=== PATIENT | female | born 1945 | race American Indian/Alaskan Native ===

== ENCOUNTER → 2017-02-18 | Outpatient (CLI) | payer MEDICARE ==
[2017-02-18 13:22] LABS: ALBUMIN 3.8 GM/DL (3.2-5.2); ALBUMIN/GLOBULIN RATIO 1.12 (1.00-1.93); ALKALINE PHOSPHATASE 34 U/L (45-117); ALT/SGPT 26 U/L (12-78); ANION GAP 5 MEQ/L (8-16); AST/SGOT 20 U/L (15-37); BILIRUBIN,TOTAL 0.6 MG/DL (0.2-1.0); BLOOD UREA NITROGEN 20 MG/DL (7-18); CALCIUM LEVEL 9.1 MG/DL (8.8-10.2); CARBON DIOXIDE LEVEL 30 MEQ/L (21-32); CHLORIDE LEVEL 104 MEQ/L (98-107); CHOLESTEROL LEVEL 230 MG/DL (<200); CREATININE FOR GFR 0.76 MG/DL (0.55-1.02); GLOMERULAR FILTRATION RATE > 60.0 (>39); GLUCOSE, FASTING 105 MG/DL (83-110); POTASSIUM SERUM 4.5 MEQ/L (3.5-5.1); SODIUM LEVEL 139 MEQ/L (136-145); TOTAL PROTEIN 7.2 GM/DL (6.4-8.2); TRIGLYCERIDES LEVEL 348 MG/DL (<150)
== END ==
LOC: M WUC 08:42
PROVIDERS: ATTEND Emergency Medicine
DX: I10 Essential (primary) hypertension (principal); E78.5 Hyperlipidemia, unspecified; E55.9 Vitamin D deficiency, unspecified; R73.01 Impaired fasting glucose

== ENCOUNTER → 2017-08-05 | Outpatient (CLI) | payer MEDICARE ==
[2017-08-05 09:57] LABS: ALBUMIN 3.9 GM/DL (3.2-5.2); ALBUMIN/GLOBULIN RATIO 1.11 (1.00-1.93); ALKALINE PHOSPHATASE 34 U/L (45-117); ALT/SGPT 25 U/L (12-78); ANION GAP 6 MEQ/L (8-16); AST/SGOT 17 U/L (7-37); BILIRUBIN,TOTAL 0.6 MG/DL (0.2-1.0); BLOOD UREA NITROGEN 17 MG/DL (7-18); CALCIUM LEVEL 9.2 MG/DL (8.8-10.2); CARBON DIOXIDE LEVEL 30 MEQ/L (21-32); CHLORIDE LEVEL 103 MEQ/L (98-107); CHOLESTEROL LEVEL 250 MG/DL (<200); CREATININE FOR GFR 0.74 MG/DL (0.55-1.02); GLOMERULAR FILTRATION RATE > 60.0 (>39); GLUCOSE, FASTING 105 MG/DL (83-110); POTASSIUM SERUM 4.3 MEQ/L (3.5-5.1); SODIUM LEVEL 139 MEQ/L (136-145); TOTAL PROTEIN 7.4 GM/DL (6.4-8.2); TRIGLYCERIDES LEVEL 289 MG/DL (<150)
== END ==
LOC: M WUC 08:04
PROVIDERS: ATTEND Emergency Medicine
DX: E78.5 Hyperlipidemia, unspecified (principal); I10 Essential (primary) hypertension; E55.9 Vitamin D deficiency, unspecified; R73.01 Impaired fasting glucose

== ENCOUNTER → 2018-02-11 | Outpatient (CLI) | payer MEDICARE ==
[2018-02-11 13:00] LABS: TOTAL 25(OH) VITAMIN D 40.7 NG/ML (30.0-100.0)
[2018-02-11 13:31] LABS: ALBUMIN 4.3 GM/DL (3.2-5.2); ALBUMIN/GLOBULIN RATIO 1.23 (1.00-1.93); ALKALINE PHOSPHATASE 41 U/L (45-117); ALT/SGPT 31 U/L (12-78); ANION GAP 9 MEQ/L (8-16); AST/SGOT 21 U/L (7-37); BILIRUBIN,TOTAL 0.7 MG/DL (0.2-1.0); BLOOD UREA NITROGEN 21 MG/DL (7-18); CALCIUM LEVEL 9.1 MG/DL (8.8-10.2); CARBON DIOXIDE LEVEL 24 MEQ/L (21-32); CHLORIDE LEVEL 107 MEQ/L (98-107); CHOLESTEROL LEVEL 215 MG/DL (<200); CHOLESTEROL RISK RATIO 3.706 (<5); CREATININE FOR GFR 0.83 MG/DL (0.55-1.30); GLOMERULAR FILTRATION RATE > 60.0 (>39); GLUCOSE, FASTING 126 MG/DL (70-100); HDL CHOLESTEROL 58 MG/DL (>40); LDL CHOLESTEROL 119.4 MG/DL (<100); NON-HDL-C 157 MG/DL; POTASSIUM SERUM 4.6 MEQ/L (3.5-5.1); SODIUM LEVEL 140 MEQ/L (136-145); TOTAL PROTEIN 7.8 GM/DL (6.4-8.2); TRIGLYCERIDES LEVEL 188 MG/DL (<150)
[2018-02-11 13:40] LABS: ESTIMATED AVERAGE GLUCOSE 131 MG/DL (60-110); HEMOGLOBIN A1c 6.2 %
== END ==
LOC: M WUC 08:55
DX: I10 Essential (primary) hypertension (principal); E78.5 Hyperlipidemia, unspecified; E55.9 Vitamin D deficiency, unspecified; R73.01 Impaired fasting glucose
CPT/HCPCS: 80053

== ENCOUNTER → 2018-09-03 | Outpatient (CLI) | payer MEDICARE ==
[2018-09-03 10:07] LABS: ALBUMIN 3.8 GM/DL (3.2-5.2); BILIRUBIN,TOTAL 0.6 MG/DL (0.2-1.0); CALCIUM LEVEL 9.1 MG/DL (8.8-10.2); CHOLESTEROL RISK RATIO 4.096 (<5); CREATININE FOR GFR 0.98 MG/DL (0.55-1.30); GLOMERULAR FILTRATION RATE 59.4 (>39); POTASSIUM SERUM 4.3 MEQ/L (3.5-5.1)
[2018-09-03 10:31] LABS: HEMOGLOBIN A1c 6.7 %
[2018-09-03 11:36] LABS: TOTAL 25(OH) VITAMIN D 52.1 NG/ML (30.0-100.0)
== END ==
LOC: M WUC 08:15
PROVIDERS: ATTEND Physician Assistant
DX: I10 Essential (primary) hypertension (principal); E78.5 Hyperlipidemia, unspecified; E55.9 Vitamin D deficiency, unspecified; R73.01 Impaired fasting glucose

== ENCOUNTER → 2018-09-30 | Outpatient (REF) | payer MEDICARE ==
[2018-09-30 13:55] LABS: CHOLESTEROL LEVEL 215 MG/DL (<200); CHOLESTEROL RISK RATIO 3.644 (<5); FREE T4 1.07 NG/DL (0.76-1.46); HDL CHOLESTEROL 59 MG/DL (>40); LDL CHOLESTEROL 116 MG/DL (<100); NON-HDL-C 156 MG/DL; RHEUMATOID FACTOR QUANT < 10.0 IU/ML (<15.0); THYROID STIMULATING HORMONE 0.497 uIU/ML (0.358-3.740); TRIGLYCERIDES LEVEL 198 MG/DL (<150)
[2018-09-30 15:28] LABS: HEMOGLOBIN A1c 6.5 %
[2018-10-01 14:58] LABS: ANTINUCLEAR ANTIBODIES DIRECT Negative (Negative)
== END ==
LOC: M LABNEURO 09:48
PROVIDERS: ATTEND Psychiatry & Neurology Neurology
DX: E07.9 Disorder of thyroid, unspecified (principal); E11.9 Type 2 diabetes mellitus without complications; I63.9 Cerebral infarction, unspecified

== ENCOUNTER → 2018-11-27 | Outpatient (CLI) | payer MEDICARE ==
[~2018-11-27] MED LIST: ISOVUE-370 76% 125ML VIAL (Q9967 PER ML) As Ordered ONE
--- NOTE | 2018-11-27 16:36 | REP ---
CT ANGIO HEAD: HISTORY: Carotid stenosis. CONTRAST: Isovue-370 370, 100 mL There is no aneurysm or arteriovenous malformation. Calcified atherosclerotic plaques are present in the cavernous internal carotid arteries and distal left vertebral artery at the level of the foramen magnum. There is no significant stenosis. Major intracranial vessels are patent. The vertebral arteries are equal in size. The deep venous system and dural sinuses are patent. IMPRESSION: 1. There is no aneurysm or arteriovenous malformation. 2. Atherosclerotic disease as described above. Electronically Signed by Taqueria Moss MD 11/27/2018 05:17 P
--- NOTE | 2018-11-27 16:45 | REP ---
CT ANGIO NECK: HISTORY: Carotid stenosis. CONTRAST: Isovue-370, 100 mL Calcified atherosclerotic plaques are present at the origins of the right external and internal carotid artery. There is moderate stenosis of 50% of the right internal carotid artery at its origin. There is moderate stenosis of 60% of the external carotid artery at its origin. Calcified atherosclerotic plaques are present at the origins of the left external and internal carotid arteries. There is mild stenosis of 30% of the left internal carotid artery at its origin. There is moderate stenosis of 60% of the left external carotid artery at its origin. The vertebral arteries are equal in size and patent. Calcified atherosclerotic plaques are present at the origins of the great vessels. There is no significant stenosis. IMPRESSION: 1. Moderate stenosis of 50% of the right internal carotid artery at its origin. 2. Mild stenosis of 30% of the left internal carotid artery at its origin. Electronically Signed by Taqueria Moss MD 11/27/2018 05:17 P
== END ==
LOC: M RAD 14:59
PROVIDERS: ATTEND Surgery Vascular Surgery
DX: I65.23 Occlusion and stenosis of bilateral carotid arteries (principal)
CPT/HCPCS: 70496; 70498; Q9967

== ENCOUNTER 2019-03-01 07:21 | Observation (INO) | payer MEDICARE ==
[~2019-03-01] VITALS: Ht 162.6 cm; Wt 67.6 kg
[2019-03-01 08:03] LABS: BASO % 0.4 % (0.0-1.0); EOS # 0.1 10^3/uL (0.0-0.50); EOS % 1.2 % (0.0-3.0); HEMATOCRIT 32.2 % (36.0-47.0); HEMOGLOBIN 10.9 g/dl (12.0-15.5); LYMPH # 1.8 10^3/uL (1.5-4.5); LYMPH % 26.5 % (24.0-44.0); MEAN CORPUSCULAR HEMOGLOBIN 30.9 pg (27.0-33.0); MEAN CORPUSCULAR HGB CONC 33.9 g/dl (32.0-36.5); MEAN CORPUSCULAR VOLUME 91.2 fl (80.0-96.0); MONO # 0.7 10^3/uL (0.0-0.8); MONO % 10.1 % (0.0-5.0); NEUTROPHILS # 4.2 10^3/uL (1.8-7.7); NEUTROPHILS % 61.7 % (36.0-66.0); PLATELET COUNT, AUTOMATED 262 10^3/uL (150-450); RED BLOOD COUNT 3.53 10^6/uL (4.00-5.40); WHITE BLOOD COUNT 6.8 10^3/uL (4.0-10.0)
[2019-03-01] MEDS ORDERED: PANTOPRAZOLE 40MG INJ (PROTONIX) (C9113) IV ONE (08:30)
[2019-03-01 08:31] LABS: ALBUMIN 3.8 GM/DL (3.2-5.2); ALT/SGPT 30 U/L (12-78); BILIRUBIN,DIRECT 0.2 MG/DL (0.0-0.2); BILIRUBIN,TOTAL 0.5 MG/DL (0.2-1.0); LIPASE 229 U/L (73-393)
[2019-03-01 08:56] LABS: CK-MB VALUE MASS < 1.0 NG/ML (<3.6); CPK CREATINE PHOSPHOKINASE 59 U/L (26-192); MB/CK RELATIVE INDEX 1.69 (< OR =4); TROPONIN I < 0.02 NG/ML (< 0.10)
[2019-03-01] MEDS: DIGOXIN 0.125 MG TAB PO SCH (09:00)
[2019-03-01] MEDS: PANTOPRAZOLE SODIUM 40 MG in D5W 50 ML IV SCH ×4 (09:08→23:04)
[2019-03-01 09:38] LABS: INR 1.59; PARTIAL THROMBOPLASTIN TIME 30.6 SECONDS (25.4-37.6); PROTHROMBIN TIME 19.2 SECONDS (12.1-14.4)
--- NOTE | 2019-03-01 09:38 | REP ---
CHEST, SINGLE VIEW: There is no evidence of acute infiltrate. No pleural effusion is seen. The heart is normal in size. The mediastinal silhouette is unremarkable. The visualized osseous structures are intact. Multiple sternal wires and mediastinal clips are present. There is calcification of the thoracic aorta. IMPRESSION: No acute pulmonary disease. Electronically Signed by Ken Harmon MD 03/01/2019 04:26 P
[2019-03-01] MEDS ORDERED: AZO1CAP2 PO (09:53)
[2019-03-01] MEDS ORDERED: D32000CA PO (09:53)
[2019-03-01] MEDS ORDERED: MINO2.5T PO (09:53)
[2019-03-01] MEDS ORDERED: DIGO0.12 PO (09:53)
[2019-03-01] MEDS ORDERED: FLUTISP NARES (09:53)
[2019-03-01] MEDS ORDERED: ATEN25TA PO (09:53)
[2019-03-01] MEDS ORDERED: PLAV1TAB2 PO (09:53)
[2019-03-01] MEDS ORDERED: NITR0.4S14 SL (09:53)
[2019-03-01] MEDS ORDERED: PRAV20TA2 PO (09:53)
[2019-03-01] MEDS ORDERED: LISI40TA PO (09:53)
[2019-03-01] MEDS ORDERED: CHLO125TA PO (09:53)
[2019-03-01] MEDS ORDERED: XARE20TA PO (09:53)
[2019-03-01] MEDS ORDERED: NITROGLYCERIN 0.3 MG SUBL TAB SL PRN (10:45)
[2019-03-01] MEDS ORDERED: ACETAMINOPHEN TAB 650MG DOSE (2X325MG) PO PRN (10:45)
[2019-03-01] MEDS ORDERED: FLUTICASONE PROP 0.05% NASAL SPRAY 16 GM (FLONASE) NARES PRN (10:45)
[2019-03-01 14:42] VITALS: BP 131/64
[2019-03-01 16:00] VITALS: BP 137/61
--- NOTE | 2019-03-01 16:39 | HPEPDOC ---
General Date of Admission Mar 01, 2019 at 10:32 Date of Service: Mar 01, 2019 Chief Complaint The patient is a 73-year-old female admitted with a reason for visit of Ugi Bleed. History of Present Illness 73-year-old female with past medical history of abdominal aortic aneurysm status post repair in 2005, mitral valve replacement, hypertension, dyslipidemia, TIAs, and recent diagnosis of atrial fibrillation status post cardiac ablation 2 weeks ago presents to the ER with a chief complaint of several episodes of dark- colored stools. Of note, the patient states that she had been taking Coumadin for anticoagulation for about 3 months for atrial fibrillation, and recently switched over to Xarelto 3 days ago due to the convenience of it. She did not have any issues with bleeding before. She does endorse some supraumbilical/epigastric abdominal pain. The patient denies any complaints of leg tenderness, dizziness, chest pain, palpitations, shortness of breath, or any nausea/vomiting/diarrhea. In the ER, the patient was noted to be hemodynamically stable. She will be admitted to the hospitalist service, and a consult has been placed to GI for further evaluation and management of possible upper GI bleed. Home Medications Scheduled Atenolol (Atenolol) 25 Mg Tablet, 12.5 MG PO DAILY, (Reported) Chlorthalidone (Chlorthalidone) 25 Mg Tablet, 12.5 MG PO DAILY, (Reported) Cholecalciferol (Vitamin D3) (Vitamin D3) 2,000 Unit Capsule, 4,000 UNIT PO DAILY, (Reported) Clopidogrel Bisulfate (Plavix) 75 Mg Tablet, 75 MG PO DAILY, (Reported) Digoxin (Digoxin) 125 Mcg Tablet, 125 MCG PO DAILY, (Reported) Lisinopril (Lisinopril) 40 Mg Tablet, 40 MG PO QHS, (Reported) Minoxidil (Minoxidil) 2.5 Mg Tablet, 2.5 MG PO DAILY, (Reported) Pravastatin Sodium (Pravastatin Sodium) 20 Mg Tablet, 10 MG PO DAILY, (Reported) Pumpkin Seed Extract/Soy Germ (Azo Bladder Control Capsule) 300 Mg Capsule, 600 MG PO QHS, (Reported) Rivaroxaban (Xarelto) 20 Mg Tablet, 20 MG PO QPM, (Reported) STARTED 02/26/19. PT WAS ON WARFARIN 3MG 5XW, 10MG 2XW PRIOR Scheduled PRN Fluticasone Propionate (Fluticasone Propionate) 16 Gm [place].susp, 2 SPRAY NARES DAILY PRN for NASAL CONGESTION, (Reported) Nitroglycerin (Nitroglycerin) 0.4 Mg Tab.subl, 0.4 MG SL NITRO PRN for CHEST PAIN, (Reported) Allergies Coded Allergies: Sulfa (Sulfonamide Antibiotics) (Verified Allergy, Severe, RSH, TROUBLE BREATHING, 03/01/19) estrogens, conjugated (Verified Allergy, Intermediate, RASH, 03/01/19) oxybutynin (Verified Allergy, Intermediate, RASH, 03/01/19) solifenacin (Verified Allergy, Intermediate, RASH, 03/01/19) Penicillins (Verified Adverse Reaction, Mild, HEADACHE, NAUSEA, 03/01/19) Past Medical History Medical History As noted in HPI. Surgical History Mitral valve replacement, AAA repair in 2005, cardiac ablation appendectomy, hysterectomy, bilateral salpingo-oophorectomy Social History * Smoker: former Smoker (smoked 2 packs per day for 40+ years. Quit in 2005) Alcohol: Denies Drugs: denies Review of Systems Other systems 10 point review of systems negative unless otherwise specified in HPI. Physical Examination General Exam: Positive: Alert, Cooperative, No Acute Distress ENT Exam: Positive: Atraumatic, Mucous membr. moist/pink Neck Exam: Negative: JVD Chest Exam: Positive: Clear to auscultation, Normal air movement Heart Exam: Positive: Rate Normal, Normal S1, Normal S2 Abdomen Exam: Positive: Soft, Tenderness (mild tenderness to deep palpation in the supraumbilical/epigastric region. No rebound tenderness, guarding, or rigidity noted.) Extremity Exam: Negative: Tenderness, Swelling Psych Exam: Positive: Oriented x 3 Vital Signs Vital Signs Date Time Temp Pulse Resp B/P (MAP) Pulse Ox O2 Delivery O2 Flow Rate FiO2 03/01/19 14:42 98.2 77 18 131/64 (86) 97 03/01/19 14:15 Room Air Laboratory Data Labs 24H Laboratory Tests 2 03/01/19 07:54: Immature Granulocyte % (Auto) 0.1, White Blood Count 6.8, Red Blood Count 3.53L, Hemoglobin 10.9L, Hematocrit 32.2L, Mean Corpuscular Volume 91.2, Mean Corpuscular Hemoglobin 30.9, Mean Corpuscular Hemoglobin Concent 33.9, Red Cell Distribution Width 13.4, Platelet Count 262, Neutrophils (%) (Auto) 61.7, Lymphocytes (%) (Auto) 26.5, Monocytes (%) (Auto) 10.1H, Eosinophils (%) (Auto) 1.2, Basophils (%) (Auto) 0.4, Neutrophils # (Auto) 4.2, Lymphocytes # (Auto) 1.8, Monocytes # (Auto) 0.7, Eosinophils # (Auto) 0.1, Basophils # (Auto) 0.0, Nucleated Red Blood Cells % (auto) 0.0, Aspartate Amino Transf (AST/SGOT) 24, Alanine Aminotransferase (ALT/SGPT) 30, Alkaline Phosphatase 41L, Total Bilirubin 0.5, Direct Bilirubin 0.2, Total Creatine Kinase 59, Creatine Kinase MB < 1.0, Creatine Kinase MB Relative Index 1.69, Troponin I < 0.02, Total Protein 7.0, Albumin 3.8, Albumin/Globulin Ratio 1.19, Lipase 229 03/01/19 08:26: Prothrombin Time 19.2H, Prothromb Time International Ratio 1.59, Activated Partial Thromboplast Time 30.6 03/01/19 08:36: POC Glucose (Misc Panel) 153H, POC Sodium (Misc Panel) 138, POC Potassium (Misc Panel) 3.9, POC Chloride (Misc Panel) 97L, POC Total CO2 (Misc Panel) 30.0H, POC Blood Urea Nitrogen (Misc Panel 42H, POC Ionized Calcium (Misc Panel) 5.0, POC Creatinine (Misc Panel) 0.9, POC Hematocrit (Misc Panel) 31.0L CBC/BMP Laboratory Tests 03/01/19 07:54 Red Blood Count 3.53 L, Mean Corpuscular Volume 91.2, Mean Corpuscular Hemoglobin 30.9, Mean Corpuscular Hemoglobin Concent 33.9, Red Cell Distribution Width 13.4, Neutrophils (%) (Auto) 61.7, Lymphocytes (%) (Auto) 26.5, Monocytes (%) (Auto) 10.1 H, Eosinophils (%) (Auto) 1.2, Basophils (%) (Auto) 0.4, Neutrophils # (Auto) 4.2, Lymphocytes # (Auto) 1.8, Monocytes # (Auto) 0.7, Eosinophils # (Auto) 0.1, Basophils # (Auto) 0.0 Plan / VTE VTE Prophylaxis Ordered?: Yes Plan Plan Melena 2/2 UGIB on Xarelto Hemodynamically stable in the ER Hgb stable We will serially monitor H&Hs We will keep the patient NPO until seen by GI and EGD planned Protonix gtt ordered Hold Xarelto/Plavix We will cont to monitor Hx of Atrial Fibrillation s/p Cardiac Ablation Rate controlled, Atenolol held in case the patient has more bleeding episodes Xarelto held 2/2 UGIB Risks, benefits, and alternative options discussed at length with the patient and her family at the bedside regarding holding anticoagulation and antiplatelet therapy. They have verbalized understanding of the same and agreed with management given her presentation of upper GI bleed. All questions were answered to their satisfaction. Hx of AAA s/p Repair in 2005 F/U as outpatient HTN Anti-HTN meds held 2/2 Above Hx of TIA Cont Statin, Plavix held 2/2 above Hx of Mitral Valve Replacement F/U as outpatient DVT Prophylaxis PERLAs/JULIO Ramon MD Mar 01, 2019 16:38
--- NOTE | 2019-03-01 18:59 | ECGEPIP ---
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
[2019-03-01 20:00] VITALS: BP 130/52
[2019-03-01 20:13] LABS: HEMATOCRIT 29.9 % (36.0-47.0); HEMOGLOBIN 9.6 g/dl (12.0-15.5)
[2019-03-01 23:59] VITALS: BP 89/50
[2019-03-02 03:17] LABS: HEMATOCRIT 27.5 % (36.0-47.0); HEMOGLOBIN 9.3 g/dl (12.0-15.5); MEAN CORPUSCULAR HEMOGLOBIN 30.9 pg (27.0-33.0); MEAN CORPUSCULAR HGB CONC 33.8 g/dl (32.0-36.5); MEAN CORPUSCULAR VOLUME 91.4 fl (80.0-96.0); PLATELET COUNT, AUTOMATED 220 10^3/uL (150-450); RED BLOOD COUNT 3.01 10^6/uL (4.00-5.40)
[2019-03-02 03:43] LABS: BLOOD UREA NITROGEN 42 MG/DL (7-18); CALCIUM LEVEL 8.8 MG/DL (8.8-10.2); CARBON DIOXIDE LEVEL 27 MEQ/L (21-32); CHLORIDE LEVEL 107 MEQ/L (98-107); CREATININE FOR GFR 0.95 MG/DL (0.55-1.30); GLOMERULAR FILTRATION RATE > 60.0 (>39); GLUCOSE, FASTING 113 MG/DL (70-100); MAGNESIUM LEVEL 2.3 MG/DL (1.8-2.4); POTASSIUM SERUM 3.8 MEQ/L (3.5-5.1); SODIUM LEVEL 141 MEQ/L (136-145)
[2019-03-02 04:00] VITALS: BP 93/48
[2019-03-02] MEDS: PANTOPRAZOLE SODIUM 40 MG in D5W 50 ML IV SCH ×4 (04:08→20:15)
[2019-03-02 07:52] VITALS: BP 121/56
[2019-03-02 09:08] LABS: HEMATOCRIT 28.4 % (36.0-47.0); HEMOGLOBIN 9.5 g/dl (12.0-15.5)
[2019-03-02] MEDS: DIGOXIN 0.125 MG TAB PO SCH (09:17)
[2019-03-02] MEDS: PRAVASTATIN 20 MG TAB PO SCH (09:17)
[2019-03-02] MEDS: VITAMIN D 1,000 INTERNATIONAL UNITS TABLET PO SCH (09:18)
[2019-03-02] MEDS ORDERED: PILL CUTTER 1 EACH XX PRN (09:30)
--- NOTE | 2019-03-02 10:19 | IPNPDOC ---
Subjective Date Seen The patient was seen on 03/02/19. Subjective Chief Complaint/HPI Patient seen and examined at the bedside. Denies any more episodes of dark colored stools. Objective Physical Examination General Exam: Positive: Alert, Cooperative, No Acute Distress ENT Exam: Positive: Atraumatic, Mucous membr. moist/pink Neck Exam: Negative: JVD Chest Exam: Positive: Clear to auscultation, Normal air movement Heart Exam: Positive: Rate Normal, Normal S1, Normal S2 Abdomen Exam: Positive: Soft, Tenderness (mild tenderness to deep palpation in the supraumbilical/epigastric region. No rebound tenderness, guarding, or rigidity noted.) Extremity Exam: Negative: Tenderness, Swelling Psych Exam: Positive: Oriented x 3 Assessment /Plan Plan/VTE VTE Prophylaxis Ordered?: Yes Plan Melena 2/2 UGIB on Xarelto Patient with no more episodes of melena since being admitted Hgb has downtrended to 9.5 this aM We will serially monitor H&Hs We will keep the patient NPO until seen by GI and EGD planned Cont Protonix gtt Hold Xarelto/Plavix We will cont to monitor Hx of Atrial Fibrillation s/p Cardiac Ablation Rate controlled, Atenolol held in case the patient has more bleeding episodes Xarelto held 2/2 UGIB Risks, benefits, and alternative options discussed at length with the patient and her family at the bedside regarding holding anticoagulation and antiplatelet therapy. They have verbalized understanding of the same and agreed with management given her presentation of upper GI bleed. All questions were answered to their satisfaction. Hx of AAA s/p Repair in 2005 F/U as outpatient HTN Anti-HTN meds held 2/2 Above Hx of TIA Cont Statin, Plavix held 2/2 above Hx of Mitral Valve Replacement F/U as outpatient DVT Prophylaxis SCDs/TEDs Dispo--pending continued clinical improvement, GI consultation. VS, I&O, 24H, Fishbone Vital Signs/I&O Vital Signs Date Time Temp Pulse Resp B/P (MAP) Pulse Ox O2 Delivery O2 Flow Rate FiO2 03/02/19 09:17 81 03/02/19 07:52 97.0 18 121/56 (77) 98 03/01/19 14:15 Room Air I&O- Last 24 Hours up to 6 AM 03/02/19 06:00 Intake Total 210 ml Output Total 300 ml Balance -90 ml Laboratory Data 24H LABS Laboratory Tests 2 03/02/19 03:10: Nucleated Red Blood Cells % (auto) 0.0, Anion Gap 7L, Glomerular Filtration Rate > 60.0, Blood Urea Nitrogen 42H, Creatinine 0.95, Sodium Level 141, Potassium Level 3.8, Chloride Level 107, Carbon Dioxide Level 27, Calcium Level 8.8, Magnesium Level 2.3 CBC/BMP Laboratory Tests 03/01/19 20:06 03/02/19 03:10 Red Blood Count 3.01 L, Mean Corpuscular Volume 91.4, Mean Corpuscular He moglobin 30.9, Mean Corpuscular Hemoglobin Concent 33.8, Red Cell Distribution Width 13.6, Calcium Level 8.8 03/02/19 08:53 Microbiology Microbiology 03/02/19 Stool Occult Blood (ESSENCE), Received Pending JULIO NYE MD Mar 02, 2019 10:19
[2019-03-02] MEDS ORDERED: PROPOFOL 200 MG/20 ML VIAL As Ordered ONE (10:21)
[2019-03-02] MEDS ORDERED: LIDOCAINE 2% INJ 100 MG/5 ML SDV (FOR ANES.) As Ordered ONE (10:21)
[2019-03-02] MEDS ORDERED: fentaNYL 100 MCG/2 ML INJECTION (J3010) As Ordered ONE (10:22)
[2019-03-02] MEDS ORDERED: MIDAZOLAM INJ 2 MG/2 ML VIAL (J2250) As Ordered ONE (10:42)
--- NOTE | 2019-03-02 12:33 | CR.PDOC ---
General Date of Consultation: Mar 02, 2019 Referring Provider: JULIO NYE MD Attending Physician: LEDA GARCIA MD Consultation Reason for consult: Melena and drop in Hemoglobin and hematocrit. HPI: 73-year-old female with HTN, DLD, history of abdominal aortic aneurysm status post repair in 2005, mitral valve replacement, multiple TIAs, secondary to atrial fibrillation status post cardiac ablation 2 weeks ago in [place], presented to the ER with a chief complaint of several episodes of dark-colored stools. Of note, the patient states that she had been taking Coumadin for antic oagulation for about 3 months for atrial fibrillation, and recently switched over to Xarelto 3 days ago. GI was consulted for the same. Patient reports the bleeding started acutely with tarry black stools upto 5 bowel movements for the past 24 hours. Patient denies any loss of consciousness, hematemesis, abdominal pain, nausea and vomiting. Pertinent negative GI symptoms: Patient denies nausea, vomiting, abdominal pain, loss of appetite, early satiety or unintentional weight loss. No history of hematemesis, hematochezia. Review of Systems: GI: as stated above CVS: No chest pain, No palpitations, No leg swelling. RS: No Shortness of breath, No Wheezing, no cough JACK PRIZER: No dizziness, No motor weakness, No sensory problems Hematology: No bruising, No gum bleeding, Musculoskeletal: No joint pain, ambulating well. Skin: No rash : No hematuria, No burning sensation of the urine ENT: No ear discharge/ pain, No dysphagia. Eyes: No photophobia. Home medications: reviewed. Antithrombotic agents - on plavix and Xarelto Medical h/o: As above. Surgical h/o: None on abdomen. Social h/o: Alcohol- denies, tobacco- Denies , IVDA/ drugs- Denies. Family h/o of GI cancers - Non contributory. Prior Endoscopies: --- EGD - Many years ago by Dr. Sandoval ( no reports available.) --- Colonoscopy - in [address] Sandoval for screening. Noted diverticulosis, hemorrhoids. No Polyps. Prior GI evaluation: Following with Dr. Sandoval. Exam: Vitals: reviewed General: Alert and oriented x 3, not in distress HEENT: Mild pallor, no icterus. Normal oropharynx, NO cervical lymph nodes. Chest: symmetric with bilateral clear air entry, CVS: S1, S2 heard, normal, no murmurs . Abdomen: non-distended, no surgical scars, soft, non-tender, no palpable masses, normal bowel sounds heard. Rectal exam: Patient refused. Extremities: no pedal edema, pulses palpable. JACK PRIZER: no focal motor or sensory deficits. Moves all extremities Skin: no rash. Labs: reviewed. Imaging tests: reviewed Impression: - Acute onset black tarry diarrhea stools without abdominal pain and labs showing drop in Hemoglobin from baseline -- DDx-- PUD vs AVM bleeding vs less likely Ischemic colitis ( no pain or tenderness). Recommendations: - Patient educated about the test results, possible differential diagnoses and All questions answered. - Continue Pantoprazole 40 mg IV twice daily. - Monitor H and H and transfuse as needed to keep Hemoglobin around 8-9. - NPO for now. - Discussed the risks and benefits of anti-thrombotic agents, and due to overt active bleeding patient agreed to hold anti-thrombotic agents for now. Consider cardiology evaluation for further discussion on the risks and benefits. - In view of ongoing episodes of melena and drop in H/H will proceed with urgent EGD today. - The procedure, indications, risks (bleeding, perforation, infection, hypotension, respiratory depression, allergy, need for endotracheal intubation, surgery, colostomy, cardiac arrest, even ), benefits, limitations (e.g., missing a lesion), and all other alternatives (including no intervention) were explained to the patient who understood and agreed for the procedure. - Post procedure follow the operative note for further recommendations. Plan of care discussed with patient and primary team. Patient verbalized understanding and agreed with the plan. Laboratory Data CBC/BMP Laboratory Tests 03/01/19 20:06 03/02/19 03:10 03/02/19 08:53 Allergies Coded Allergies: Sulfa (Sulfonamide Antibiotics) (Verified Allergy, Severe, RSH, TROUBLE BREATHING, 03/01/19) estrogens, conjugated (Verified Allergy, Intermediate, RASH, 03/01/19) oxybutynin (Verified Allergy, Intermediate, RASH, 03/01/19) solifenacin (Verified Allergy, Intermediate, RASH, 03/01/19) Penicillins (Verified Adverse Reaction, Mild, HEADACHE, NAUSEA, 03/01/19) Home Medications Scheduled Atenolol (Atenolol) 25 Mg Tablet, 12.5 MG PO DAILY, (Reported) Chlorthalidone (Chlorthalidone) 25 Mg Tablet, 12.5 MG PO DAILY, (Reported) Cholecalciferol (Vitamin D3) (Vitamin D3) 2,000 Unit Capsule, 4,000 UNIT PO DAILY, (Reported) Clopidogrel Bisulfate (Plavix) 75 Mg Tablet, 75 MG PO DAILY, (Reported) Digoxin (Digoxin) 125 Mcg Tablet, 125 MCG PO DAILY, (Reported) Lisinopril (Lisinopril) 40 Mg Tablet, 40 MG PO QHS, (Reported) Minoxidil (Minoxidil) 2.5 Mg Tablet, 2.5 MG PO DAILY, (Reported) Pravastatin Sodium (Pravastatin Sodium) 20 Mg Tablet, 10 MG PO DAILY, (Reported) Pumpkin Seed Extract/Soy Germ (Azo Bladder Control Capsule) 300 Mg Capsule, 600 MG PO QHS, (Reported) Rivaroxaban (Xarelto) 20 Mg Tablet, 20 MG PO QPM, (Reported) STARTED 02/26/19. PT WAS ON WARFARIN 3MG 5XW, 10MG 2XW PRIOR Scheduled PRN Fluticasone Propionate (Fluticasone Propionate) 16 Gm [place].susp, 2 SPRAY NARES DAILY PRN for NASAL CONGESTION, (Reported) Nitroglycerin (Nitroglycerin) 0.4 Mg Tab.subl, 0.4 MG SL NITRO PRN for CHEST PAIN, (Reported) LEDA GARCIA MD Mar 02, 2019 12:32
[2019-03-02] MEDS ORDERED: ONDANSETRON 4MG/2ML VIAL (J2405) As Ordered ONE (12:39)
[2019-03-02] MEDS ORDERED: PHENYLephrine HCL 500 MCG/5 ML (100MCG/ML) SYRINGE (J2370) As Ordered ONE (12:45)
--- NOTE | 2019-03-02 13:07 | ROOR ---
Patient Name: Armida Goncalves Procedure Date: 03/02/2019 10:52 AM Date of : 1945 Age: 73 Gender: Female Note Status: Finalized Procedure: Upper GI endoscopy Indications: Active gastrointestinal bleeding, Melena Providers: Mayo Hedrick MD Referring MD: Wale Morton Md Requesting Provider: Medicines: Monitored Anesthesia Care Complications: No immediate complications. Procedure: Pre-Anesthesia Assessment: - Prior to the procedure, a History and Physical was performed, and patient medications and allergies were reviewed. The patient is competent. The risks and benefits of the procedure and the sedation options and risks were discussed with the patient. All questions were answered and informed consent was obtained. Patient identification and proposed procedure were verified by the physician, the nurse and the anesthesiologist in the procedure room. Mental Status Examination: alert and oriented. Airway Examination: normal oropharyngeal airway and neck mobility. Respiratory Examination: clear to auscultation. CV Examination: normal. Prophylactic Antibiotics: The patient does not require prophylactic antibiotics. Prior Anticoagulants: The patient has taken no previous anticoagulant or antiplatelet agents. ASA Grade Assessment: III - A patient with severe systemic disease. After reviewing the risks and benefits, the patient was deemed in satisfactory condition to undergo the procedure. The anesthesia plan was to use monitored anesthesia care (MAC). Immediately prior to administration of medications, the patient was re-assessed for adequacy to receive sedatives. The heart rate, respiratory rate, oxygen saturations, blood pressure, adequacy of pulmonary ventilation, and response to care were monitored throughout the procedure. The physical status of the patient was re-assessed after the procedure. The Endoscope was introduced through the mouth, and advanced to the second part of duodenum. The upper GI endoscopy was accomplished without difficulty. The patient tolerated the procedure well. Findings: The Z-line was irregular and was found in the distal esophagus. A small hiatal hernia was present. Striped mildly erythematous mucosa without bleeding was found in the gastric antrum. There is no endoscopic evidence of bleeding or ulceration in the stomach. One small angioectasia with stigmata of recent bleeding was found in the duodenal bulb. Coagulation for hemostasis using argon plasma at 0.8 liters/minute and 20 monterroso was successful. For hemostasis, one hemostatic clip was successfully placed. There was no bleeding at the end of the procedure. The second portion of the duodenum was normal. Impression: - Z-line irregular, in the distal esophagus. - Small hiatal hernia. - Erythematous mucosa in the antrum. - One recently bleeding angioectasia in the duodenum. Treated with argon plasma coagulation (APC). Clip was placed. - Normal second portion of the duodenum. - No specimens collected. Recommendation: - Return patient to [facility] for ongoing care. - Patient has a contact number available for emergencies. The signs and symptoms of potential delayed complications were discussed with the patient. Return to normal activities tomorrow. Written discharge instructions were provided to the patient. - Clear liquid diet for 1 day, then advance as tolerated to resume previous diet. - Use Protonix (pantoprazole) 40 mg PO daily - to be taken early childhood education worker 1/2 hour before breakfast for 6 weeks. - Observe patient's clinical course. - Resume Plavix (clopidogrel) tomorrow and Xarelto (rivaroxaban) today at prior doses. Refer to Primary team and cardiology to discuss the risks and benefits for further adjustment of therapy. - If recurrent bleeding or drop in Hemoglobin or hematocrit to consider Colonsocopy after bowel preparation. - Return to GI clinic If any new symptoms. (Patient to follow up her primary GI Dr. Sandoval). - Return to primary care physician. Mayo Hedrick MD Mayo Hedrick MD 03/02/2019 1:07:23 PM Electronically signed by Mayo Hedrick MD Number of Addenda: 0 Note Initiated On: 03/02/2019 10:52 AM Estimated Blood Loss: Estimated blood loss: none.
[2019-03-02] MEDS ORDERED: ONDANSETRON 4MG/2ML VIAL (J2405) IV PRN (13:15)
[2019-03-02] MEDS ORDERED: LR 1,000 ML IV SCH (13:15)
[2019-03-02 13:39] VITALS: BP 115/53
[2019-03-02 16:00] VITALS: BP 105/46
[2019-03-02 20:00] VITALS: BP 126/62
[2019-03-02 23:59] VITALS: BP 115/52
[2019-03-03] MEDS: PANTOPRAZOLE SODIUM 40 MG in D5W 50 ML IV SCH ×3 (01:07→11:01)
[2019-03-03 04:00] VITALS: BP 124/64
[2019-03-03 05:52] LABS: HEMOGLOBIN 8.6 g/dl (12.0-15.5); MEAN CORPUSCULAR HEMOGLOBIN 30.8 pg (27.0-33.0); MEAN CORPUSCULAR HGB CONC 33.1 g/dl (32.0-36.5); MEAN CORPUSCULAR VOLUME 93.2 fl (80.0-96.0); PLATELET COUNT, AUTOMATED 187 10^3/uL (150-450); RED BLOOD COUNT 2.79 10^6/uL (4.00-5.40); WHITE BLOOD COUNT 6.1 10^3/uL (4.0-10.0)
[2019-03-03 06:13] LABS: BLOOD UREA NITROGEN 24 MG/DL (7-18); CALCIUM LEVEL 8.3 MG/DL (8.8-10.2); CARBON DIOXIDE LEVEL 29 MEQ/L (21-32); CHLORIDE LEVEL 106 MEQ/L (98-107); CREATININE FOR GFR 0.85 MG/DL (0.55-1.30); GLOMERULAR FILTRATION RATE > 60.0 (>39); GLUCOSE, FASTING 108 MG/DL (70-100); POTASSIUM SERUM 3.4 MEQ/L (3.5-5.1); SODIUM LEVEL 138 MEQ/L (136-145)
[2019-03-03 08:00] VITALS: BP 112/55
[2019-03-03] MEDS: VITAMIN D 1,000 INTERNATIONAL UNITS TABLET PO SCH (08:30)
[2019-03-03] MEDS: PRAVASTATIN 20 MG TAB PO SCH (08:31)
[2019-03-03] MEDS: DIGOXIN 0.125 MG TAB PO SCH (08:31)
[2019-03-03 11:40] VITALS: BP 122/58
[2019-03-03] MEDS ORDERED: PHYTONADIONE 1.25 MG 1/4 TAB PO ONE (12:00)
[2019-03-03] MEDS: CLOPIDOGREL 75 MG TAB PO SCH (12:23)
[2019-03-03] MEDS ORDERED: RIVAROXABAN 20 MG TAB (XARELTO) PO SCH (18:00)
--- NOTE | 2019-03-03 19:10 | IPNPDOC ---
Text Note Date of Service The patient was seen on 03/03/19. NOTE Subjective: Ms. Goncalves is feeling well. She is tolerating an advancing diet. She has not noted any further black stools. Hemoglobin is currently 8.6. Objective:Systolic blood pressures range from 112-126. She is afebrile. O2 sats are 96-98% on room air. HENT: Neck is supple with no adenopathy or thyromegaly, oral mucosa is moist. Cardiovascular: Regular rate and rhythm with a normal S1 and S2. No appreciable murmur or bruit. Respiratory: Patient is clear to auscultation with good air movement and no rhonchi, rales, wheezes or cough. Abdomen: Abdomen is soft with mild central obesity, but is otherwise benign to exam. Extremities: No peripheral edema or lesions and pedal pulses are palpable. Neurologic exam: shows no gross focal neuromotor or sensory deficit Assessment/plan: This is a 73-year-old female admitted with guaiac positive stools of unknown source. The patient underwent upper endoscopy by GI services. 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 There have been signs of recent bleeding. Patient underwent coagulation with argon plasma. Hemostatic clip was also placed. There was no bleeding with the procedure. No other lesions were identified. The patient had previously been on Plavix and Xarelto. These were held at admission. She has been cleared to restart these medications. We note that the patient's hemoglobin had dropped to 8.6. We will recheck her hemoglobin tomorrow. If it is dropped further, she may need transfusion. Otherwise, we are hopeful of discharging her to home. VS,Alfredobone, I+O VS, Fishbone, I+O Laboratory Tests 03/03/19 05:25 Red Blood Count 2.79 L, Mean Corpuscular Volume 93.2, Mean Corpuscular Hemoglobin 30.8, Mean Corpuscular Hemoglobin Concent 33.1, Red Cell Distribution Width 13.3, Calcium Level 8.3 L Vital Signs Date Time Temp Pulse Resp B/P (MAP) Pulse Ox O2 Delivery O2 Flow Rate FiO2 03/03/19 11:40 98.7 76 18 122/58 (79) 98 03/01/19 14:15 Room Air I&O- Last 24 Hours up to 6 AM 03/03/19 05:59 Intake Total 1260 ml Output Total 900 ml Balance 360 ml DENAE JOLLY MD Mar 03, 2019 19:10
[2019-03-03 20:00] VITALS: BP 150/67
[2019-03-04 04:00] VITALS: BP 117/58
[2019-03-04 06:15] LABS: HEMATOCRIT 24.1 % (36.0-47.0); HEMOGLOBIN 8.1 g/dl (12.0-15.5); MEAN CORPUSCULAR HEMOGLOBIN 30.6 pg (27.0-33.0); MEAN CORPUSCULAR HGB CONC 33.6 g/dl (32.0-36.5); MEAN CORPUSCULAR VOLUME 90.9 fl (80.0-96.0); PLATELET COUNT, AUTOMATED 193 10^3/uL (150-450); RED BLOOD COUNT 2.65 10^6/uL (4.00-5.40); WHITE BLOOD COUNT 5.8 10^3/uL (4.0-10.0)
[2019-03-04 06:36] LABS: BLOOD UREA NITROGEN 15 MG/DL (7-18); CALCIUM LEVEL 8.5 MG/DL (8.8-10.2); CARBON DIOXIDE LEVEL 28 MEQ/L (21-32); CHLORIDE LEVEL 105 MEQ/L (98-107); CREATININE FOR GFR 0.82 MG/DL (0.55-1.30); GLOMERULAR FILTRATION RATE > 60.0 (>39); GLUCOSE, FASTING 104 MG/DL (70-100); POTASSIUM SERUM 3.2 MEQ/L (3.5-5.1); SODIUM LEVEL 140 MEQ/L (136-145)
[2019-03-04 08:00] VITALS: BP 149/63
[2019-03-04] MEDS ORDERED: POTASSIUM CHLORIDE 10 MEQ SR TABLET PO ONE (08:00)
[2019-03-04] MEDS: VITAMIN D 1,000 INTERNATIONAL UNITS TABLET PO SCH (08:41)
[2019-03-04] MEDS: CLOPIDOGREL 75 MG TAB PO SCH (08:42)
[2019-03-04] MEDS: DIGOXIN 0.125 MG TAB PO SCH (08:42)
[2019-03-04] MEDS: PRAVASTATIN 20 MG TAB PO SCH (08:43)
[2019-03-04] MEDS ORDERED: PANTOPRAZOLE 40MG TAB (PROTONIX) PO SCH (09:00)
[2019-03-04] MEDS ORDERED: PANT40TA3 PO (10:19)
--- NOTE | 2019-03-04 15:05 | DS.PDOC ---
Discharge Summary General Date of Admission Mar 01, 2019 at 10:32 Date of Discharge 03/04/2019 Specialist/Consultants Involve: LEDA GARCIA MD Discharge Summary PROCEDURES PERFORMED DURING STAY: Upper endoscopy, coagulation of lesion, hemostatic clipping.. ADMITTING DIAGNOSES: Upper GI bleed, melena,. DISCHARGE DIAGNOSES: . Upper GI bleed resolved, melena, resolved, chronic atrial fibrillation,Valvular heart disease, essential hypertension, dyslipidemia.. COMPLICATIONS/CHIEF COMPLAINT: Ugi Bleed. HOSPITAL COURSE: This is a 73-year-old female with a history remarkable for chronic atrial fibrillation with chronic anticoagulation. She underwent cardiac ablation 2 weeks prior to admission. The patient had been on Coumadin for anticoagulation and then switched over to his relative. She hasn't episodes of dark-colored/black stools. She had some epigastric pain. She came to the emergency room for evaluation. The patient was generally hemodynamically stable. She did not have hypoxia, hypotension or lightheadedness. She was noted to have guaiac positive stools. Her Plavix and his relative were held. Patient was evaluated by upper endoscopy by GI services. She was found to have a small angiectasia with stigmata of recent bleeding. This lesion was to the region of her duodenal bulb. Intervention included coagulation with argon plasma laser and placement of a hemostatic clip. There was no active bleeding at this site of the lesion, but it appeared to have bled recently. The patient was gradually restored to a normal diet. She was also allowed to resume her Xarelto and Plavix. She did not develop any further black stools and her hemoglobin remained appropriately stable.. DISCHARGE MEDICATIONS: Please see below. ALLERGIES: Please see below. PHYSICAL EXAMINATION ON DISCHARGE: VITAL SIGNS: Please see below. HENT: Neck is supple with no adenopathy or thyromegaly, oral mucosa is moist. Cardiovascular: Regular rate and rhythm with a normal S1 and S2. No appreciable murmur or bruit. Respiratory: Patient is clear to auscultation with good air movement and no rhonchi, rales, wheezes or cough. Abdomen: Abdomen is soft with mild central obesity, but is otherwise benign to exam. Extremities: No peripheral edema or lesions and pedal pulses are palpable. Neurologic exam: shows no gross focal neuromotor or sensory deficit LABORATORY DATA: Please see below. IMAGING: ACTIVITY: As tolerated. DIET: Heart healthy DISCHARGE PLAN: The patient is stable for discharge to home. Recommendations are that she follow-up with her usual dolly operator, Dr. Sandoval within the next 2-3 weeks. She can also follow up with her primary care provider, Krista Yung in 2 weeks as well. DISPOSITION: 01 Home, Self-Care. DISCHARGE INSTRUCTIONS: ITEMS TO FOLLOWUP ON ON OUTPATIENT: DISCHARGE CONDITION: Stable. TIME SPENT ON DISCHARGE: Greater than 40 minutes. Vital Signs/I&Os Vital Signs Date Time Temp Pulse Resp B/P (MAP) Pulse Ox O2 Delivery O2 Flow Rate FiO2 03/04/19 08:42 74 03/04/19 08:00 98.2 18 149/63 (91) 97 03/01/19 14:15 Room Air I&O- Last 24 Hours up to 6 AM 03/04/19 06:00 Intake Total 1430 ml Output Total 200 ml Balance 1230 ml Laboratory Data Labs 24H Laboratory Tests 2 03/04/19 05:20: Nucleated Red Blood Cells % (auto) 0.0, Anion Gap 7L, Glomerular Filtration Rate > 60.0, Blood Urea Nitrogen 15, Creatinine 0.82, Sodium Level 140, Potassium Level 3.2L, Chloride Level 105, Carbon Dioxide Level 28, Calcium Level 8.5L CBC/BMP Laboratory Tests 03/04/19 05:20 Red Blood Count 2.65 L, Mean Corpuscular Volume 90.9, Mean Corpuscular Hemoglobi n 30.6, Mean Corpuscular Hemoglobin Concent 33.6, Red Cell Distribution Width 12.9, Calcium Level 8.5 L Microbiology Microbiology 03/02/19 Stool Occult Blood (ESSENCE) - Final, Complete Discharge Medications Scheduled Atenolol (Atenolol) 25 Mg Tablet, 12.5 MG PO DAILY, (Reported) Chlorthalidone (Chlorthalidone) 25 Mg Tablet, 12.5 MG PO DAILY, (Reported) Cholecalciferol (Vitamin D3) (Vitamin D3) 2,000 Unit Capsule, 4,000 UNIT PO DAILY, (Reported) Clopidogrel Bisulfate (Plavix) 75 Mg Tablet, 75 MG PO DAILY, (Reported) Digoxin (Digoxin) 125 Mcg Tablet, 125 MCG PO DAILY, (Reported) Lisinopril (Lisinopril) 40 Mg Tablet, 40 MG PO QHS, (Reported) Minoxidil (Minoxidil) 2.5 Mg Tablet, 2.5 MG PO DAILY, (Reported) Pantoprazole Sodium (Pantoprazole Sodium) 40 Mg Tablet.dr, 40 MG PO DAILY Pravastatin Sodium (Pravastatin Sodium) 20 Mg Tablet, 10 MG PO DAILY, (Reported) Pumpkin Seed Extract/Soy Germ (Azo Bladder Control Capsule) 300 Mg Capsule, 600 MG PO QHS, (Reported) Rivaroxaban (Xarelto) 20 Mg Tablet, 20 MG PO QPM, (Reported) STARTED 02/26/19. PT WAS ON WARFARIN 3MG 5XW, 10MG 2XW PRIOR Scheduled PRN Fluticasone Propionate (Fluticasone Propionate) 16 Gm [place].susp, 2 SPRAY NARES DAILY PRN for NASAL CONGESTION, (Reported) Nitroglycerin (Nitroglycerin) 0.4 Mg Tab.subl, 0.4 MG SL NITRO PRN for CHEST PAIN, (Reported) Allergies Coded Allergies: Sulfa (Sulfonamide Antibiotics) (Verified Allergy, Severe, RSH, TROUBLE BREATHING, 03/01/19) estrogens, conjugated (Verified Allergy, Intermediate, RASH, 03/01/19) oxybutynin (Verified Allergy, Intermediate, RASH, 03/01/19) solifenacin (Verified Allergy, Intermediate, RASH, 03/01/19) Penicillins (Verified Adverse Reaction, Mild, HEADACHE, NAUSEA, 03/01/19) DENAE JOLLY MD Mar 04, 2019 15:05
== END 2019-03-04 13:25 | disposition home or self-care (01) ==
LOC: M ED 07:21 → M ED INP 10:32 → M PCU 14:35
PROVIDERS: ADMIT Internal Medicine; ATTEND Internal Medicine
DX: K44.9 Diaphragmatic hernia without obstruction or gangrene (principal); K22.8 Other specified diseases of esophagus; K31.811 Angiodysplasia of stomach and duodenum with bleeding; K92.1 Melena; I48.2 Chronic atrial fibrillation; Z98.890 Other specified postprocedural states; I10 Essential (primary) hypertension; E78.5 Hyperlipidemia, unspecified; Z79.899 Other long term (current) drug therapy; Z79.01 Long term (current) use of anticoagulants; Z79.02 Long term (current) use of antithrombotics/antiplatelets; Z88.2 Allergy status to sulfonamides; Z88.8 Allergy status to other drugs, medicaments and biological substances; Z88.0 Allergy status to penicillin; Z86.73 Personal history of transient ischemic attack (TIA), and cerebral infarction without residual deficits; Z95.2 Presence of prosthetic heart valve; Z86.79 Personal history of other diseases of the circulatory system; Z87.891 Personal history of nicotine dependence
CPT/HCPCS: 36415; 43255; 71045; 80047; 80048; 80076; 82270; 82550; 82553; 83690; 83735; 84484; 85014; 85018; 85025; 85027; 85610; 85730; 86850; 86900; 86901; 93005; 93041; 94760; 96365; 96366; 96376; 99285; C9113; G0378; J2250; J2370; J2405; J3010

== ENCOUNTER → 2019-08-18 | Outpatient (CLI) | payer MEDICARE ==
[~2019-08-18] MED LIST changes: +ATEN25TA PO; +AZO1CAP2 PO; +CHLO125TA PO; +D32000CA PO; +DIGO0.12 PO; +FLUTISP NARES; -ISOVUE-370 76% 125ML VIAL (Q9967 PER ML) As Ordered ONE; +LISI40TA PO; +MINO2.5T PO; +NITR0.4S14 SL; +PANT40TA3 PO; +PLAV1TAB2 PO; +PRAV20TA2 PO; +XARE20TA PO
[2019-08-18 15:14] LABS: BASO % 0.6 % (0.0-1.0); EOS # 0.1 10^3/uL (0.0-0.5); EOS % 2.2 % (0.0-3.0); HEMATOCRIT 40.8 % (36.0-47.0); HEMOGLOBIN 12.9 g/dl (12.0-15.5); LYMPH # 2.2 10^3/uL (1.5-5.0); LYMPH % 35.6 % (24.0-44.0); MEAN CORPUSCULAR HEMOGLOBIN 27.7 pg (27.0-33.0); MEAN CORPUSCULAR HGB CONC 31.6 g/dl (32.0-36.5); MEAN CORPUSCULAR VOLUME 87.6 fl (80.0-96.0); MONO # 0.9 10^3/uL (0.0-0.8); MONO % 14.3 % (0.0-5.0); NEUTROPHILS # 2.9 10^3/uL (1.5-8.5); PLATELET COUNT, AUTOMATED 264 10^3/uL (150-450); RED BLOOD COUNT 4.66 10^6/uL (4.00-5.40); WHITE BLOOD COUNT 6.2 10^3/uL (4.0-10.0)
[2019-08-18 15:24] LABS: ALBUMIN 3.9 GM/DL (3.2-5.2); BILIRUBIN,TOTAL 0.5 MG/DL (0.2-1.0); CHOLESTEROL RISK RATIO 3.181 (<5); CREATININE FOR GFR 1.07 MG/DL (0.55-1.30); GLOMERULAR FILTRATION RATE 53.5 (>39); POTASSIUM SERUM 4.4 MEQ/L (3.5-5.1); TOTAL PROTEIN 7.1 GM/DL (6.4-8.2)
[2019-08-18 15:30] LABS: HEMOGLOBIN A1c 6.5 %
== END ==
LOC: M WUC 09:13
PROVIDERS: ATTEND Physician Assistant
DX: I10 Essential (primary) hypertension (principal); E78.5 Hyperlipidemia, unspecified; R73.01 Impaired fasting glucose; K29.61 Other gastritis with bleeding

== ENCOUNTER → 2020-04-26 | Outpatient (REF) | payer MEDICARE ==
[~2020-04-26] MED LIST changes: -DIGO0.12 PO; +DIGO0.123 PO; +PANT40TA29 PO; -PANT40TA3 PO
[2020-06-21 04:08] LABS: CREATININE, URINE 61.1 MG/DL; MALB URINE SIEMENS 25.1 MG/L
[2020-06-21 04:09] LABS: HEMOGLOBIN A1c 6.2 %
== END ==
LOC: M LAB REF 14:49
PROVIDERS: ATTEND Physician Assistant Medical
DX: E11.9 Type 2 diabetes mellitus without complications (principal)

== ENCOUNTER → 2021-03-31 | Outpatient (CLI) | payer MEDICARE ==
[~2021-03-31] MED LIST changes: -LISI40TA PO; +LISI40TA4 PO
[2021-03-31 12:37] LABS: BASO % 0.5 % (0.0-1.0); EOS # 0.1 10^3/uL (0.0-0.5); EOS % 1.8 % (0.0-3.0); HEMATOCRIT 39.5 % (36.0-47.0); LYMPH % 31.9 % (24.0-44.0); MEAN CORPUSCULAR HEMOGLOBIN 29.5 pg (27.0-33.0); MEAN CORPUSCULAR HGB CONC 32.9 g/dl (32.0-36.5); MEAN CORPUSCULAR VOLUME 89.6 fl (80.0-96.0); MONO # 0.9 10^3/uL (0.0-0.8); MONO % 14.7 % (2.0-8.0); NEUTROPHILS # 3.1 10^3/uL (1.5-8.5); NEUTROPHILS % 50.8 % (36.0-66.0); PLATELET COUNT, AUTOMATED 234 10^3/uL (150-450); RED BLOOD COUNT 4.41 10^6/uL (4.00-5.40); WHITE BLOOD COUNT 6.1 10^3/uL (4.0-10.0)
[2021-03-31 13:05] LABS: ALBUMIN 4.1 GM/DL (3.2-5.2); ALT/SGPT 41 U/L (12-78); BILIRUBIN,TOTAL 0.7 MG/DL (0.2-1.0); BLOOD UREA NITROGEN 19 MG/DL (7-18); CALCIUM LEVEL 9.7 MG/DL (8.8-10.2); CARBON DIOXIDE LEVEL 26 MEQ/L (21-32); CHLORIDE LEVEL 104 MEQ/L (98-107); CHOLESTEROL LEVEL 217 MG/DL (<200); CREATININE FOR GFR 0.95 MG/DL (0.55-1.30); GLOMERULAR FILTRATION RATE > 60.0 (>39); GLUCOSE, FASTING 111 MG/DL (70-100); HDL CHOLESTEROL 62 MG/DL (>40); LDL CHOLESTEROL 128 MG/DL (<100); NON-HDL-C 155 MG/DL; SODIUM LEVEL 139 MEQ/L (136-145); TOTAL PROTEIN 7.5 GM/DL (6.4-8.2); TRIGLYCERIDES LEVEL 137 MG/DL (<150)
[2021-03-31 13:14] LABS: CREATININE, URINE 37.1 MG/DL; MALB URINE SIEMENS 14.1 MG/L
== END ==
LOC: M WUC 10:06
PROVIDERS: ATTEND Family Medicine
DX: E11.9 Type 2 diabetes mellitus without complications (principal)

== ENCOUNTER → 2021-05-09 | Outpatient (CLI) | payer MEDICARE ==
[2021-05-09 16:41] LABS: HEMOGLOBIN 12.8 g/dl (12.0-15.5); MEAN CORPUSCULAR HEMOGLOBIN 29.5 pg (27.0-33.0); MEAN CORPUSCULAR HGB CONC 32.8 g/dl (32.0-36.5); MEAN CORPUSCULAR VOLUME 89.9 fl (80.0-96.0); PLATELET COUNT, AUTOMATED 238 10^3/uL (150-450); RED BLOOD COUNT 4.34 10^6/uL (4.00-5.40)
[2021-05-09 17:08] LABS: ALBUMIN 3.9 GM/DL (3.2-5.2); ALT/SGPT 33 U/L (12-78); BILIRUBIN,TOTAL 0.7 MG/DL (0.2-1.0); BLOOD UREA NITROGEN 15 MG/DL (7-18); CALCIUM LEVEL 9.6 MG/DL (8.8-10.2); CARBON DIOXIDE LEVEL 26 MEQ/L (21-32); CHLORIDE LEVEL 105 MEQ/L (98-107); CHOLESTEROL LEVEL 231 MG/DL (<200); CREATININE FOR GFR 0.82 MG/DL (0.55-1.30); GLOMERULAR FILTRATION RATE > 60.0 (>39); GLUCOSE, FASTING 108 MG/DL (70-100); HDL CHOLESTEROL 55 MG/DL (>40); LDL CHOLESTEROL 128 MG/DL (<100); MAGNESIUM LEVEL 2.3 MG/DL (1.8-2.4); NON-HDL-C 176 MG/DL; SODIUM LEVEL 139 MEQ/L (136-145); TOTAL PROTEIN 7.3 GM/DL (6.4-8.2); TRIGLYCERIDES LEVEL 241 MG/DL (<150)
== END ==
LOC: M WUC 13:08
PROVIDERS: ATTEND Physician Assistant
DX: I25.10 Atherosclerotic heart disease of native coronary artery without angina pectoris (principal); I48.0 Paroxysmal atrial fibrillation; E78.2 Mixed hyperlipidemia

== ENCOUNTER → 2021-07-17 | Outpatient (CLI) | payer MEDICARE ==
[2021-07-17 14:00] LABS: ALBUMIN 3.8 GM/DL (3.2-5.2); BILIRUBIN,DIRECT 0.2 MG/DL (0.0-0.2); BILIRUBIN,TOTAL 0.6 MG/DL (0.2-1.0); CHOLESTEROL RISK RATIO 2.5 (<5); TOTAL PROTEIN 6.9 GM/DL (6.4-8.2)
== END ==
LOC: M WUC 08:51
PROVIDERS: ATTEND Physician Assistant
DX: E78.2 Mixed hyperlipidemia (principal)

== ENCOUNTER → 2021-10-30 | Outpatient (CLI) | payer MEDICARE ==
[2021-10-30 10:56] LABS: BLOOD UREA NITROGEN 16 MG/DL (7-18); CALCIUM LEVEL 9.1 MG/DL (8.8-10.2); CARBON DIOXIDE LEVEL 29 MEQ/L (21-32); CHLORIDE LEVEL 104 MEQ/L (98-107); CREATININE FOR GFR 0.93 MG/DL (0.55-1.30); GLOMERULAR FILTRATION RATE > 60.0 (>39); GLUCOSE, FASTING 124 MG/DL (70-100); POTASSIUM SERUM 4.1 MEQ/L (3.5-5.1); SODIUM LEVEL 140 MEQ/L (136-145)
== END ==
LOC: M WUC 08:11
PROVIDERS: ATTEND Physician Assistant
DX: I11.9 Hypertensive heart disease without heart failure (principal)

== ENCOUNTER 2022-03-21 19:00 | Inpatient (IN) | payer MEDICARE ==
[~2022-03-21] VITALS: Ht 162.6 cm; Wt 79.8 kg
[~2022-03-21 19:00] MED LIST changes: -ALBU8.5H INH; -D200CAP PO; -META28.32 PO; -MIRA1POW3 PO
[2022-03-21] MEDS ORDERED: PANTOPRAZOLE 40MG VIAL IV ONE (20:10)
[2022-03-21 21:08] LABS: BASO % 0.6 % (0.0-1.0); EOS # 0.2 10^3/uL (0.0-0.5); EOS % 2.6 % (0.0-3.0); LYMPH # 1.1 10^3/uL (1.5-5.0); LYMPH % 17.2 % (24.0-44.0); MEAN CORPUSCULAR HGB CONC 28.7 g/dl (32.0-36.5); MEAN CORPUSCULAR VOLUME 80.2 fl (80.0-96.0); MONO # 0.9 10^3/uL (0.0-0.8); MONO % 14.2 % (2.0-8.0); NEUTROPHILS # 4.3 10^3/uL (1.5-8.5); NEUTROPHILS % 65.1 % (36.0-66.0); PLATELET COUNT, AUTOMATED 365 10^3/uL (150-450); RED BLOOD COUNT 2.17 10^6/uL (4.00-5.40); WHITE BLOOD COUNT 6.6 10^3/uL (4.0-10.0)
[2022-03-21 21:18] LABS: HEMATOCRIT 17.4 % (36.0-47.0)
[2022-03-21 21:22] LABS: INR 1.38; PARTIAL THROMBOPLASTIN TIME 29.7 SECONDS (25.9-37.0); PROTHROMBIN TIME 17.4 SECONDS (12.7-14.5)
[2022-03-21 21:28] LABS: CK-MB VALUE MASS < 1.0 NG/ML (<3.6); CPK CREATINE PHOSPHOKINASE 83 U/L (26-192)
[2022-03-21 21:39] LABS: ALBUMIN 3.4 GM/DL (3.2-5.2); BILIRUBIN,DIRECT 0.3 MG/DL (0.0-0.2); BILIRUBIN,TOTAL 0.7 MG/DL (0.2-1.0); CALCIUM LEVEL 8.5 MG/DL (8.8-10.2); CREATININE FOR GFR 1.19 MG/DL (0.55-1.30); DIGOXIN LEVEL 0.2 NG/ML (0.5-2.0); GLOMERULAR FILTRATION RATE 46.9 (>39); POTASSIUM SERUM 4.2 MEQ/L (3.5-5.1); TOTAL PROTEIN 6.7 GM/DL (6.4-8.2)
[2022-03-21 22:39] VITALS: BP 136/63
[2022-03-21 22:45] VITALS: BP 128/61
[2022-03-21] MEDS ORDERED: NS 1,000 ML IV SCH (22:50)
[2022-03-21] MEDS ORDERED: D200CAP PO (23:43)
[2022-03-21] MEDS ORDERED: META28.32 PO (23:43)
[2022-03-21] MEDS ORDERED: MIRA1POW3 PO (23:43)
[2022-03-21] MEDS ORDERED: ALBU8.5H INH (23:43)
[2022-03-21 23:45] VITALS: BP 133/61
[2022-03-21] MEDS ORDERED: HOME MED LIST COMPLETE! XX SCH (23:45)
[2022-03-22] VITALS (16 sets, daily range): BP systolic 132–165; BP diastolic 53–73
[2022-03-22] MEDS ORDERED: CYCLOBENZAPRINE 5MG TABLET PO ONE ×2 (01:00→20:45)
[2022-03-22] MEDS ORDERED: ACETAMINOPHEN TAB 650MG DOSE (2X325MG) PO PRN (01:00)
[2022-03-22 01:05] LABS: VENOUS BASE EXCESS -2.9 (-2.0-2.0); VENOUS HCO3 21.2 MEQ/L (23.0-27.0); VENOUS O2 SATURATION 96.4 % (60.0-80.0); VENOUS PARTIAL PRESSURE CO2 33.4 mmHg (38.0-50.0); VENOUS PARTIAL PRESSURE O2 85.9 mmHg (30.0-50.0); VENOUS TOTAL CO2 22.2 MEQ/L (24.0-28.0)
[2022-03-22 06:15] LABS: HEMATOCRIT 23.7 % (36.0-47.0); MEAN CORPUSCULAR HEMOGLOBIN 26.1 pg (27.0-33.0); MEAN CORPUSCULAR HGB CONC 32.1 g/dl (32.0-36.5); MEAN CORPUSCULAR VOLUME 81.4 fl (80.0-96.0); PLATELET COUNT, AUTOMATED 316 10^3/uL (150-450); RED BLOOD COUNT 2.91 10^6/uL (4.00-5.40); WHITE BLOOD COUNT 8.2 10^3/uL (4.0-10.0)
[2022-03-22 06:25] LABS: HEMOGLOBIN 7.6 g/dl (12.0-15.5)
[2022-03-22 06:40] LABS: BLOOD UREA NITROGEN 19 MG/DL (7-18); CALCIUM LEVEL 8.4 MG/DL (8.8-10.2); CARBON DIOXIDE LEVEL 25 MEQ/L (21-32); CHLORIDE LEVEL 105 MEQ/L (98-107); CREATININE FOR GFR 0.95 MG/DL (0.55-1.30); FERRITIN 9 NG/ML (8-252); GLOMERULAR FILTRATION RATE > 60.0 (>39); GLUCOSE, FASTING 101 MG/DL (70-100); IRON (FE) 289 UG/DL (50-170); PERCENT SATURATION 66.1 % (13.2-45.0); POTASSIUM SERUM 3.6 MEQ/L (3.5-5.1); SODIUM LEVEL 134 MEQ/L (136-145); TOTAL IRON BINDING CAPACITY 437 UG/DL (250-450)
[2022-03-22] MEDS: PANTOPRAZOLE 40MG VIAL IV SCH ×2 (08:38→20:05)
[2022-03-22] MEDS ORDERED: DEXTROSE 50% 50 ML SYRINGE IV PRN (11:00)
[2022-03-22] MEDS ORDERED: GLUCOSE 4GM CHEW TABLET PO PRN (11:00)
[2022-03-22] MEDS ORDERED: GLUCAGON INJ 1MG VIAL SC PRN (11:00)
[2022-03-22] MEDS ORDERED: D5W/0.45% SODIUM CHLORIDE 1,000 ML IV SCH (11:00)
[2022-03-22] MEDS: lisinopriL 40MG TAB PO SCH (12:13)
[2022-03-22] MEDS ORDERED: FUROSEMIDE 40MG/4ML VIAL (J1940) IV ONE (17:45)
[2022-03-22 19:21] LABS: HEMATOCRIT 31.8 % (36.0-47.0); HEMOGLOBIN 10.4 g/dl (12.0-15.5)
[2022-03-23] VITALS (21 sets, daily range): BP systolic 71–147; BP diastolic 33–70
[2022-03-23 00:18] LABS: HEMATOCRIT 31.1 % (36.0-47.0); HEMOGLOBIN 10.2 g/dl (12.0-15.5)
[2022-03-23] MEDS ORDERED: atenoloL 25 MG TAB PO ONE (01:25)
[2022-03-23] MEDS ORDERED: DIGOXIN 0.125 MG TAB PO ONE (01:25)
[2022-03-23 04:50] LABS: HEMATOCRIT 33.3 % (36.0-47.0); HEMOGLOBIN 10.9 g/dl (12.0-15.5); MEAN CORPUSCULAR HEMOGLOBIN 26.5 pg (27.0-33.0); MEAN CORPUSCULAR HGB CONC 32.7 g/dl (32.0-36.5); MEAN CORPUSCULAR VOLUME 80.8 fl (80.0-96.0); PLATELET COUNT, AUTOMATED 322 10^3/uL (150-450); RED BLOOD COUNT 4.12 10^6/uL (4.00-5.40); WHITE BLOOD COUNT 10.6 10^3/uL (4.0-10.0)
[2022-03-23 05:28] LABS: CALCIUM LEVEL 8.6 MG/DL (8.8-10.2); CREATININE FOR GFR 1.02 MG/DL (0.55-1.30); GLOMERULAR FILTRATION RATE 56.1 (>39); MAGNESIUM LEVEL 2.1 MG/DL (1.8-2.4); POTASSIUM SERUM 3.5 MEQ/L (3.5-5.1); THYROID STIMULATING HORMONE 0.861 uIU/ML (0.358-3.740)
[2022-03-23 05:32] LABS: MB/CK RELATIVE INDEX 1.06 (< OR =4)
[2022-03-23] MEDS ORDERED: NS 500 ML IV ONE ×3 (06:05→17:00)
[2022-03-23] MEDS: METOPROLOL 5 MG/5 ML VIAL IV SCH ×3 (06:15→07:39)
[2022-03-23] MEDS ORDERED: diltiaZEM 125 MG in NS 100 ML IV SCH (07:00)
[2022-03-23] MEDS: lisinopriL 40MG TAB PO SCH (08:28)
[2022-03-23] MEDS: PANTOPRAZOLE 40MG VIAL IV SCH ×2 (08:28→20:12)
[2022-03-23] MEDS ORDERED: DIGOXIN 0.125 MG TAB PO SCH (09:00)
[2022-03-23] MEDS ORDERED: PNEUMOCOCCAL VACCINE 0.5ML SYRINGE (PNEUMOVAX 23) IM.IMMUN ONE (09:00)
[2022-03-23] MEDS: atenoloL 25 MG TAB PO SCH (12:18)
[2022-03-23 17:36] LABS: BASO # 0.1 10^3/uL (0.0-0.2); BASO % 0.6 % (0.0-1.0); EOS # 0.3 10^3/uL (0.0-0.5); EOS % 2.9 % (0.0-3.0); HEMATOCRIT 31.3 % (36.0-47.0); LYMPH # 1.4 10^3/uL (1.5-5.0); LYMPH % 15.3 % (24.0-44.0); MEAN CORPUSCULAR HEMOGLOBIN 26.2 pg (27.0-33.0); MEAN CORPUSCULAR HGB CONC 31.9 g/dl (32.0-36.5); MEAN CORPUSCULAR VOLUME 81.9 fl (80.0-96.0); MONO # 1.2 10^3/uL (0.0-0.8); MONO % 13.3 % (2.0-8.0); NEUTROPHILS % 67.3 % (36.0-66.0); PLATELET COUNT, AUTOMATED 306 10^3/uL (150-450); RED BLOOD COUNT 3.82 10^6/uL (4.00-5.40); WHITE BLOOD COUNT 8.9 10^3/uL (4.0-10.0)
[2022-03-23 18:03] LABS: CALCIUM LEVEL 8.2 MG/DL (8.8-10.2); CREATININE FOR GFR 1.26 MG/DL (0.55-1.30); POTASSIUM SERUM 3.9 MEQ/L (3.5-5.1)
[2022-03-23 18:04] LABS: ALBUMIN 3.1 GM/DL (3.2-5.2); BILIRUBIN,TOTAL 2.5 MG/DL (0.2-1.0); TOTAL PROTEIN 6.1 GM/DL (6.4-8.2)
[2022-03-24] VITALS: BP 102/59
[2022-03-24 04:00] VITALS: BP 108/56
[2022-03-24 07:43] VITALS: BP 149/65
[2022-03-24 07:45] LABS: HEMATOCRIT 34.7 % (36.0-47.0); MEAN CORPUSCULAR HEMOGLOBIN 26.8 pg (27.0-33.0); MEAN CORPUSCULAR HGB CONC 31.7 g/dl (32.0-36.5); MEAN CORPUSCULAR VOLUME 84.4 fl (80.0-96.0); PLATELET COUNT, AUTOMATED 313 10^3/uL (150-450); RED BLOOD COUNT 4.11 10^6/uL (4.00-5.40); WHITE BLOOD COUNT 7.9 10^3/uL (4.0-10.0)
[2022-03-24 08:16] LABS: CALCIUM LEVEL 8.9 MG/DL (8.8-10.2); CREATININE FOR GFR 1.08 MG/DL (0.55-1.30); GLOMERULAR FILTRATION RATE 52.5 (>39)
[2022-03-24] MEDS: DIGOXIN 0.125 MG TAB PO SCH (09:05)
[2022-03-24] MEDS: atenoloL 25 MG TAB PO SCH (09:06)
[2022-03-24] MEDS: PANTOPRAZOLE 40MG VIAL IV SCH (09:06)
[2022-03-24] MEDS ORDERED: FLUTICASONE PROP 0.05% NASAL SPRAY 16 GM (FLONASE) PRN (10:30)
[2022-03-24] MEDS ORDERED: ALBUTEROL 90 MCG/ACT 8GM HFA INHALER INH PRN (10:30)
[2022-03-24] MEDS ORDERED: NITROGLYCERIN 0.4 MG SUBL TABLET SL PRN (10:30)
[2022-03-24] MEDS: MIRALAX *UNIT DOSE* 17GM PACKET PO SCH (11:17)
[2022-03-24] MEDS: CHLORTHALIDONE 12.5MG PER 1/2 TABLET PO SCH (11:18)
[2022-03-24] MEDS: METAMUCIL (PSYLLIUM) PACKET PO SCH (11:18)
[2022-03-24 11:55] VITALS: BP 146/64
[2022-03-24 15:58] VITALS: BP 143/63
[2022-03-24 19:43] VITALS: BP 152/64
[2022-03-24] MEDS: PRAVASTATIN 10 MG TAB PO SCH (21:14)
[2022-03-25] VITALS: BP_SYST 107; BP_SYST 111; BP_DIAS 57; BP_DIAS 60
[2022-03-25 04:00] VITALS: BP 101/58
[2022-03-25 07:30] LABS: HEMATOCRIT 33.1 % (36.0-47.0); HEMOGLOBIN 10.2 g/dl (12.0-15.5); MEAN CORPUSCULAR HEMOGLOBIN 26.2 pg (27.0-33.0); MEAN CORPUSCULAR HGB CONC 30.8 g/dl (32.0-36.5); MEAN CORPUSCULAR VOLUME 84.9 fl (80.0-96.0); PLATELET COUNT, AUTOMATED 258 10^3/uL (150-450); WHITE BLOOD COUNT 6.9 10^3/uL (4.0-10.0)
[2022-03-25 07:48] LABS: BLOOD UREA NITROGEN 14 MG/DL (7-18); CALCIUM LEVEL 8.8 MG/DL (8.8-10.2); CARBON DIOXIDE LEVEL 29 MEQ/L (21-32); CHLORIDE LEVEL 105 MEQ/L (98-107); CREATININE FOR GFR 0.93 MG/DL (0.55-1.30); GLOMERULAR FILTRATION RATE > 60.0 (>39); GLUCOSE, FASTING 103 MG/DL (70-100); POTASSIUM SERUM 4.1 MEQ/L (3.5-5.1); SODIUM LEVEL 136 MEQ/L (136-145)
[2022-03-25 08:00] VITALS: BP 133/65
[2022-03-25] MEDS: DIGOXIN 0.125 MG TAB PO SCH (09:03)
[2022-03-25] MEDS: CHLORTHALIDONE 12.5MG PER 1/2 TABLET PO SCH (09:04)
[2022-03-25] MEDS: atenoloL 25 MG TAB PO SCH (09:04)
[2022-03-25] MEDS: METAMUCIL (PSYLLIUM) PACKET PO SCH (09:05)
[2022-03-25] MEDS: MIRALAX *UNIT DOSE* 17GM PACKET PO SCH (09:06)
[2022-03-25 11:42] VITALS: BP 115/63
[2022-03-25 15:55] VITALS: BP 139/61
[2022-03-25] MEDS: RIVAROXABAN 20MG TAB (XARELTO) PO SCH (17:27)
[2022-03-25 20:43] VITALS: BP 129/70
[2022-03-25] MEDS: PRAVASTATIN 10 MG TAB PO SCH (20:46)
[2022-03-26] VITALS: BP 130/57
[2022-03-26 04:24] VITALS: BP 126/60
[2022-03-26 06:02] LABS: HEMATOCRIT 33.3 % (36.0-47.0); HEMOGLOBIN 10.3 g/dl (12.0-15.5); MEAN CORPUSCULAR HEMOGLOBIN 25.9 pg (27.0-33.0); MEAN CORPUSCULAR HGB CONC 30.9 g/dl (32.0-36.5); MEAN CORPUSCULAR VOLUME 83.7 fl (80.0-96.0); PLATELET COUNT, AUTOMATED 255 10^3/uL (150-450); RED BLOOD COUNT 3.98 10^6/uL (4.00-5.40); WHITE BLOOD COUNT 5.9 10^3/uL (4.0-10.0)
[2022-03-26 06:20] LABS: BLOOD UREA NITROGEN 13 MG/DL (7-18); CALCIUM LEVEL 8.9 MG/DL (8.8-10.2); CARBON DIOXIDE LEVEL 27 MEQ/L (21-32); CHLORIDE LEVEL 104 MEQ/L (98-107); CREATININE FOR GFR 0.79 MG/DL (0.55-1.30); GLOMERULAR FILTRATION RATE > 60.0 (>39); GLUCOSE, FASTING 110 MG/DL (70-100); POTASSIUM SERUM 3.8 MEQ/L (3.5-5.1); SODIUM LEVEL 135 MEQ/L (136-145)
[2022-03-26 08:00] VITALS: BP 135/90
[2022-03-26] MEDS: CHLORTHALIDONE 12.5MG PER 1/2 TABLET PO SCH (09:26)
[2022-03-26] MEDS: DIGOXIN 0.125 MG TAB PO SCH (09:26)
[2022-03-26 09:27] VITALS: BP 124/70
[2022-03-26] MEDS: MIRALAX *UNIT DOSE* 17GM PACKET PO SCH (09:27)
[2022-03-26] MEDS: METAMUCIL (PSYLLIUM) PACKET PO SCH (09:27)
[2022-03-26] MEDS: atenoloL 25 MG TAB PO SCH (09:27)
[2022-03-26 12:00] VITALS: BP 122/90
[2022-03-26 14:01] VITALS: BP 119/90
[2022-03-26] MEDS ORDERED: ATEN25TA PO (17:57)
[2022-03-26] MEDS ORDERED: DIGO0.123 PO (17:57)
[2022-03-26] MEDS: RIVAROXABAN 20MG TAB (XARELTO) PO SCH (18:01)
[2022-04-12] MEDS ORDERED: OMEP40CA5 PO (14:04)
[2022-04-12] MEDS ORDERED: ROSU10TA6 PO (14:04)
== END 2022-03-26 18:01 | disposition home or self-care (01) | DRG 812 ==
LOC: M ED 19:00 → M ED INP 22:49 → ENRESERV 23:23 → M MSPAV 03-22 00:45 → M PCU 03-23 06:12
PROVIDERS: ADMIT Internal Medicine; ATTEND General Practice
PROC: 30233N1 Transfusion of Nonautologous Red Blood Cells into Peripheral Vein, Percutaneous Approach (ICD-10-PCS; principal; 2022-03-21)
DX: D50.0 Iron deficiency anemia secondary to blood loss (chronic) (principal); I48.20 Chronic atrial fibrillation, unspecified; R06.02 Shortness of breath; E11.9 Type 2 diabetes mellitus without complications; Z79.01 Long term (current) use of anticoagulants; Z79.899 Other long term (current) drug therapy; Z88.0 Allergy status to penicillin; Z88.1 Allergy status to other antibiotic agents; Z88.2 Allergy status to sulfonamides; Z88.5 Allergy status to narcotic agent; Z88.8 Allergy status to other drugs, medicaments and biological substances; I12.9 Hypertensive chronic kidney disease with stage 1 through stage 4 chronic kidney disease, or unspecified chronic kidney disease; K21.9 Gastro-esophageal reflux disease without esophagitis; E78.00 Pure hypercholesterolemia, unspecified; Z87.891 Personal history of nicotine dependence; I25.10 Atherosclerotic heart disease of native coronary artery without angina pectoris; N18.30 Chronic kidney disease, stage 3 unspecified

== ENCOUNTER → 2022-03-21 | Outpatient (CLI) | payer MEDICARE ==
[~2022-03-21] MED LIST changes: +ALBU8.5H INH; +D200CAP PO; +FLUTISP; -FLUTISP NARES; +META28.32 PO; +MIRA1POW3 PO
[2022-03-21 17:52] LABS: BASO % 0.4 % (0.0-1.0); EOS # 0.2 10^3/uL (0.0-0.5); EOS % 1.9 % (0.0-3.0); LYMPH # 1.2 10^3/uL (1.5-5.0); LYMPH % 14.8 % (24.0-44.0); MEAN CORPUSCULAR HEMOGLOBIN 23.7 pg (27.0-33.0); MEAN CORPUSCULAR HGB CONC 28.6 g/dl (32.0-36.5); MEAN CORPUSCULAR VOLUME 82.9 fl (80.0-96.0); MONO % 12.3 % (2.0-8.0); NEUTROPHILS # 5.5 10^3/uL (1.5-8.5); NEUTROPHILS % 70.1 % (36.0-66.0); PLATELET COUNT, AUTOMATED 359 10^3/uL (150-450); RED BLOOD COUNT 2.11 10^6/uL (4.00-5.40); WHITE BLOOD COUNT 7.9 10^3/uL (4.0-10.0)
[2022-03-21 17:55] LABS: HEMATOCRIT 17.5 % (36.0-47.0)
[2022-03-21 18:09] LABS: ALBUMIN 3.5 GM/DL (3.2-5.2); BILIRUBIN,TOTAL 0.7 MG/DL (0.2-1.0); CALCIUM LEVEL 8.7 MG/DL (8.8-10.2); CREATININE FOR GFR 1.04 MG/DL (0.55-1.30); GLOMERULAR FILTRATION RATE 54.8 (>39); POTASSIUM SERUM 3.8 MEQ/L (3.5-5.1); TOTAL PROTEIN 6.5 GM/DL (6.4-8.2)
[2022-03-21 18:16] LABS: CREATININE, URINE 89.7 MG/DL; MALB URINE SIEMENS 44.9 MG/L
== END ==
LOC: M WUC 11:46
PROVIDERS: ATTEND Family Medicine
DX: R06.02 Shortness of breath (principal); E11.9 Type 2 diabetes mellitus without complications

== ENCOUNTER → 2022-04-19 | Outpatient (CLI) | payer MEDICARE ==
[~2022-04-19] MED LIST changes: +ALBU8.5H INH; +D200CAP PO; +META28.32 PO; +MIRA1POW3 PO; +OMEP40CA5 PO; +ROSU10TA6 PO
== END ==
LOC: M LABSMTC 10:04
PROVIDERS: ATTEND Anesthesiology
DX: Z01.818 Encounter for other preprocedural examination (principal); Z11.52 Encounter for screening for COVID-19

== ENCOUNTER 2022-04-24 07:50 | Day surgery (SDC) | payer MEDICARE ==
[~2022-04-24] VITALS: Ht 162.6 cm; Wt 78.9 kg
[~2022-04-24 07:50] MED LIST changes: +LIDOCAINE 2% 100MG/5ML SDV (FOR ANES.) As Ordered ONE; +NS 1,000 ML IV ONE; +fentaNYL 100 MCG/2 ML INJECTION As Ordered ONE; +propofoL 500 MG/50 ML VIAL As Ordered ONE
[2022-04-24 10:58] VITALS: BP 108/52
== END 2022-04-24 11:50 | disposition home or self-care (01) ==
LOC: M OPP 07:50
PROVIDERS: ATTEND Internal Medicine Gastroenterology
DX: D62 Acute posthemorrhagic anemia (principal); K92.2 Gastrointestinal hemorrhage, unspecified; D12.6 Benign neoplasm of colon, unspecified; K57.30 Diverticulosis of large intestine without perforation or abscess without bleeding; K64.8 Other hemorrhoids; K44.9 Diaphragmatic hernia without obstruction or gangrene; K29.70 Gastritis, unspecified, without bleeding; I25.2 Old myocardial infarction; I10 Essential (primary) hypertension; M19.90 Unspecified osteoarthritis, unspecified site; I71.4 Abdominal aortic aneurysm, without rupture; R78.5 Finding of other psychotropic drug in blood; I48.91 Unspecified atrial fibrillation; G43.909 Migraine, unspecified, not intractable, without status migrainosus; Z86.73 Personal history of transient ischemic attack (TIA), and cerebral infarction without residual deficits; Z87.891 Personal history of nicotine dependence; Z88.0 Allergy status to penicillin; Z88.2 Allergy status to sulfonamides; Z88.8 Allergy status to other drugs, medicaments and biological substances; Z79.01 Long term (current) use of anticoagulants; Z79.899 Other long term (current) drug therapy
CPT/HCPCS: 43239; 45385; 88305; J3010

== ENCOUNTER → 2022-05-11 | Outpatient (CLI) | payer MEDICARE ==
[~2022-05-11] MED LIST changes: -LIDOCAINE 2% 100MG/5ML SDV (FOR ANES.) As Ordered ONE; -NS 1,000 ML IV ONE; -fentaNYL 100 MCG/2 ML INJECTION As Ordered ONE; -propofoL 500 MG/50 ML VIAL As Ordered ONE
== END ==
LOC: M RAD 09:55
PROVIDERS: ATTEND Physician Assistant
DX: I65.23 Occlusion and stenosis of bilateral carotid arteries (principal)

== ENCOUNTER → 2022-05-17 | Outpatient (CLI) | payer MEDICARE ==
[~2022-05-17] MED LIST changes: +ASCO50TA PO; +FERR1TAB8 PO
[2022-05-17 16:26] LABS: BASO # 0.1 10^3/uL (0.0-0.2); BASO % 0.9 % (0.0-1.0); EOS # 0.1 10^3/uL (0.0-0.5); EOS % 1.6 % (0.0-3.0); HEMATOCRIT 22.8 % (36.0-47.0); LYMPH # 1.1 10^3/uL (1.5-5.0); MEAN CORPUSCULAR HGB CONC 28.5 g/dl (32.0-36.5); MEAN CORPUSCULAR VOLUME 80.9 fl (80.0-96.0); MONO # 0.8 10^3/uL (0.0-0.8); MONO % 11.7 % (2.0-8.0); NEUTROPHILS # 4.8 10^3/uL (1.5-8.5); NEUTROPHILS % 69.5 % (36.0-66.0); PLATELET COUNT, AUTOMATED 330 10^3/uL (150-450); RED BLOOD COUNT 2.82 10^6/uL (4.00-5.40)
[2022-05-17 17:02] LABS: ALBUMIN 3.5 GM/DL (3.2-5.2); BILIRUBIN,TOTAL 0.9 MG/DL (0.2-1.0); CALCIUM LEVEL 9.1 MG/DL (8.8-10.2); CREATININE FOR GFR 1.01 MG/DL (0.55-1.30); GLOMERULAR FILTRATION RATE 56.7 (>39); PERCENT SATURATION 3.2 % (13.2-45.0); POTASSIUM SERUM 3.9 MEQ/L (3.5-5.1); TOTAL PROTEIN 6.7 GM/DL (6.4-8.2)
[2022-05-17 17:06] LABS: HEMOGLOBIN 6.5 g/dl (12.0-15.5)
== END ==
LOC: M WUC 10:36
PROVIDERS: ATTEND Family Medicine
DX: R53.83 Other fatigue (principal)

== ENCOUNTER 2022-05-18 10:48 | Observation (INO) | payer MEDICARE ==
[~2022-05-18] VITALS: Ht 162.6 cm; Wt 77.9 kg
[2022-05-18] VITALS (10 sets, daily range): BP systolic 109–164; BP diastolic 49–71
[~2022-05-18 10:48] MED LIST changes: -ASCO50TA PO; -FERR1TAB8 PO
[2022-05-18 11:46] LABS: BASO # 0.1 10^3/uL (0.0-0.2); BASO % 0.8 % (0.0-1.0); EOS # 0.1 10^3/uL (0.0-0.5); EOS % 1.6 % (0.0-3.0); HEMATOCRIT 22.2 % (36.0-47.0); LYMPH # 1.2 10^3/uL (1.5-5.0); LYMPH % 19.1 % (24.0-44.0); MEAN CORPUSCULAR HEMOGLOBIN 23.4 pg (27.0-33.0); MEAN CORPUSCULAR HGB CONC 29.7 g/dl (32.0-36.5); MEAN CORPUSCULAR VOLUME 78.7 fl (80.0-96.0); MONO # 0.7 10^3/uL (0.0-0.8); MONO % 11.9 % (2.0-8.0); NEUTROPHILS % 66.1 % (36.0-66.0); PLATELET COUNT, AUTOMATED 335 10^3/uL (150-450); RED BLOOD COUNT 2.82 10^6/uL (4.00-5.40); WHITE BLOOD COUNT 6.1 10^3/uL (4.0-10.0)
[2022-05-18 11:48] LABS: HEMOGLOBIN 6.6 g/dl (12.0-15.5)
[2022-05-18 11:57] LABS: INR 2.39; PROTHROMBIN TIME 26.4 SECONDS (12.7-14.5)
[2022-05-18 11:58] LABS: PARTIAL THROMBOPLASTIN TIME 37.6 SECONDS (25.9-37.0)
[2022-05-18] MEDS ORDERED: DIGO0.123 PO (12:03)
[2022-05-18] MEDS ORDERED: ATEN25TA PO (12:03)
[2022-05-18] MEDS ORDERED: HOME MED LIST COMPLETE! XX SCH (12:05)
[2022-05-18 12:18] LABS: RSV AMPLIFICATION NEGATIVE (NEGATIVE)
[2022-05-18 12:24] LABS: ALBUMIN 3.4 GM/DL (3.2-5.2); BILIRUBIN,DIRECT 0.3 MG/DL (0.0-0.2); BILIRUBIN,TOTAL 0.9 MG/DL (0.2-1.0); CALCIUM LEVEL 8.8 MG/DL (8.8-10.2); CREATININE FOR GFR 1.49 MG/DL (0.55-1.30); GLOMERULAR FILTRATION RATE 36.2 (>39)
[2022-05-18] MEDS ORDERED: NITROGLYCERIN 0.4 MG SUBL TABLET SL PRN (13:05)
[2022-05-18] MEDS ORDERED: ALBUTEROL 90 MCG/ACT 8GM HFA INHALER INH PRN (13:05)
[2022-05-18] MEDS ORDERED: LR 1,000 ML IV SCH (15:10)
[2022-05-18] MEDS ORDERED: ISOVUE-370 76% 100ML VIAL As Ordered ONE (15:15)
[2022-05-18 20:22] LABS: HEMATOCRIT 24.5 % (36.0-47.0); HEMOGLOBIN 7.7 g/dl (12.0-15.5); MEAN CORPUSCULAR HEMOGLOBIN 24.7 pg (27.0-33.0); MEAN CORPUSCULAR HGB CONC 31.4 g/dl (32.0-36.5); MEAN CORPUSCULAR VOLUME 78.5 fl (80.0-96.0); PLATELET COUNT, AUTOMATED 309 10^3/uL (150-450); RED BLOOD COUNT 3.12 10^6/uL (4.00-5.40); WHITE BLOOD COUNT 8.3 10^3/uL (4.0-10.0)
[2022-05-18] MEDS ORDERED: lisinopriL 40MG TAB PO SCH (21:00)
[2022-05-18] MEDS ORDERED: ROSUVASTATIN 10 MG TAB (CRESTOR) PO SCH (21:00)
[2022-05-19 00:13] VITALS: BP 127/61
[2022-05-19 01:33] VITALS: BP 160/85
[2022-05-19 01:42] LABS: HEMOGLOBIN 8.5 g/dl (12.0-15.5); MEAN CORPUSCULAR HGB CONC 31.5 g/dl (32.0-36.5); MEAN CORPUSCULAR VOLUME 79.4 fl (80.0-96.0); PLATELET COUNT, AUTOMATED 294 10^3/uL (150-450); WHITE BLOOD COUNT 8.6 10^3/uL (4.0-10.0)
[2022-05-19] MEDS ORDERED: IPRATROPIUM 0.5MG/ALBUTEROL 2.5MG INH SOL UD 3ML (DUONEB) NEB ONE (02:15)
[2022-05-19] MEDS ORDERED: FUROSEMIDE 20MG/2ML VIAL (J1940) IV ONE (02:15)
[2022-05-19] MEDS ORDERED: LR 1,000 ML IV ONE (02:25)
[2022-05-19] MEDS ORDERED: atenoloL 25 MG TAB PO ONE (02:50)
[2022-05-19 05:16] VITALS: BP 131/66
[2022-05-19 06:10] LABS: HEMATOCRIT 26.9 % (36.0-47.0); HEMOGLOBIN 8.5 g/dl (12.0-15.5); MEAN CORPUSCULAR HGB CONC 31.6 g/dl (32.0-36.5); MEAN CORPUSCULAR VOLUME 79.1 fl (80.0-96.0); PLATELET COUNT, AUTOMATED 309 10^3/uL (150-450); WHITE BLOOD COUNT 8.2 10^3/uL (4.0-10.0)
[2022-05-19 06:39] LABS: CALCIUM LEVEL 9.1 MG/DL (8.8-10.2); CREATININE FOR GFR 1.01 MG/DL (0.55-1.30); GLOMERULAR FILTRATION RATE 56.7 (>39); POTASSIUM SERUM 3.3 MEQ/L (3.5-5.1)
[2022-05-19] MEDS ORDERED: IRON SUCROSE 100MG 5ML VIAL (J1756 PER 1MG) IV ONE (07:30)
[2022-05-19] MEDS ORDERED: POTASSIUM CHLORIDE 10MEQ SR TABLET PO ONE (09:00)
[2022-05-19] MEDS ORDERED: FERROUS SULFATE 325MG TAB PO SCH (09:00)
[2022-05-19] MEDS ORDERED: atenoloL 25 MG TAB PO SCH (09:00)
[2022-05-19] MEDS ORDERED: DIGOXIN 0.125 MG TAB PO SCH (09:00)
[2022-05-19] MEDS ORDERED: CHLORTHALIDONE 12.5MG PER 1/2 TABLET PO SCH (09:00)
[2022-05-19] MEDS ORDERED: ASCORBIC ACID 500 MG TAB PO SCH (09:00)
[2022-05-19] MEDS ORDERED: OMEPRAZOLE 20MG CAP PO SCH (09:00)
[2022-05-19 09:58] VITALS: BP 131/66
[2022-05-19] MEDS ORDERED: IRON SUCROSE 300 MG in NS 250 ML IV ONE (11:00)
[2022-05-19] MEDS ORDERED: IRON SUCROSE 300 MG in NS 250 ML OVER 90 MIN. IV ONE (11:00)
[2022-05-19] MEDS ORDERED: FERR1TAB8 PO (13:17)
[2022-05-19] MEDS ORDERED: ASCO50TA PO (13:17)
== END 2022-05-19 14:41 | disposition home or self-care (01) ==
LOC: M ED 10:48 → M ED INP 12:54 → ENRESERV 15:45 → M MSPAV 17:19
PROVIDERS: ADMIT Student in an Organized Health Care Education/Training Program; ATTEND Student in an Organized Health Care Education/Training Program
DX: D50.9 Iron deficiency anemia, unspecified (principal); I48.91 Unspecified atrial fibrillation; N17.9 Acute kidney failure, unspecified; K31.89 Other diseases of stomach and duodenum; R59.0 Localized enlarged lymph nodes; E78.5 Hyperlipidemia, unspecified; I10 Essential (primary) hypertension; K57.90 Diverticulosis of intestine, part unspecified, without perforation or abscess without bleeding; K44.9 Diaphragmatic hernia without obstruction or gangrene; K64.4 Residual hemorrhoidal skin tags; K64.8 Other hemorrhoids; K21.9 Gastro-esophageal reflux disease without esophagitis; K29.50 Unspecified chronic gastritis without bleeding; K92.1 Melena; I25.10 Atherosclerotic heart disease of native coronary artery without angina pectoris; I25.2 Old myocardial infarction; R10.9 Unspecified abdominal pain; R11.2 Nausea with vomiting, unspecified; Z79.899 Other long term (current) drug therapy; Z79.01 Long term (current) use of anticoagulants; Z88.2 Allergy status to sulfonamides; Z88.8 Allergy status to other drugs, medicaments and biological substances; Z88.0 Allergy status to penicillin
CPT/HCPCS: 36415; 36430; 71045; 74177; 80048; 80053; 80076; 80162; 82150; 82728; 83550; 83605; 83690; 85025; 85027; 85610; 85730; 86850; 86870; 86880; 86900; 86901; 86920; 87631; 93005; 93041; 94640; 96361; 96374; 96375; 99285; G0378; J1756; J1940; P9016; Q9967

== ENCOUNTER → 2022-06-01 | Outpatient (CLI) | payer MEDICARE ==
[~2022-06-01] MED LIST changes: +ASCO50TA PO; +FERR1TAB8 PO
== END ==
LOC: M RAD 08:55
PROVIDERS: ATTEND Family Medicine
DX: I71.4 Abdominal aortic aneurysm, without rupture (principal)

== ENCOUNTER → 2022-07-17 | Outpatient (CLI) | payer MEDICARE ==
[~2022-07-17] MED LIST changes: +CLOP75TA99 PO; -PLAV1TAB2 PO
[2022-07-17 12:22] LABS: HEMATOCRIT 39.5 % (36.0-47.0); HEMOGLOBIN 12.6 g/dl (12.0-15.5); MEAN CORPUSCULAR HEMOGLOBIN 26.8 pg (27.0-33.0); MEAN CORPUSCULAR HGB CONC 31.9 g/dl (32.0-36.5); MEAN CORPUSCULAR VOLUME 83.9 fl (80.0-96.0); PLATELET COUNT, AUTOMATED 273 10^3/uL (150-450); RED BLOOD COUNT 4.71 10^6/uL (4.00-5.40)
[2022-07-17 13:08] LABS: ALBUMIN 3.7 GM/DL (3.2-5.2); BILIRUBIN,TOTAL 0.6 MG/DL (0.2-1.0); CALCIUM LEVEL 9.4 MG/DL (8.8-10.2); CHOLESTEROL RISK RATIO 3.568 (<5); GLOMERULAR FILTRATION RATE 57.4 (>39); MAGNESIUM LEVEL 2.2 MG/DL (1.8-2.4); TOTAL PROTEIN 7.5 GM/DL (6.4-8.2)
== END ==
LOC: M WUC 09:36
PROVIDERS: ATTEND Physician Assistant
DX: E78.2 Mixed hyperlipidemia (principal); I48.0 Paroxysmal atrial fibrillation; I25.10 Atherosclerotic heart disease of native coronary artery without angina pectoris

== ENCOUNTER → 2022-07-18 | Outpatient (CLI) | payer MEDICARE | LOC: M LABSMTC 10:55 | PROVIDERS: ATTEND Anesthesiology | DX: Z01.812 Encounter for preprocedural laboratory examination (principal); Z20.822 Contact with and (suspected) exposure to COVID-19 ==

== ENCOUNTER → 2022-07-20 | Outpatient (CLI) | payer MEDICARE ==
[~2022-07-20] MED LIST changes: +GASTROGRAFIN SOLUTION 30ML (Q9963) As Ordered ONE; +ISOVUE-370 76% 100ML VIAL As Ordered ONE
== END ==
LOC: M RAD 14:20
PROVIDERS: ATTEND Family Medicine
DX: R59.9 Enlarged lymph nodes, unspecified (principal)
CPT/HCPCS: 74160; Q9963; Q9967

== ENCOUNTER 2022-07-23 12:28 | Day surgery (SDC) | payer MEDICARE ==
[~2022-07-23] VITALS: Ht 162.6 cm; Wt 75.3 kg
[~2022-07-23 12:28] MED LIST changes: -GASTROGRAFIN SOLUTION 30ML (Q9963) As Ordered ONE; -ISOVUE-370 76% 100ML VIAL As Ordered ONE; +NS 1,000 ML IV ONE
[2022-07-23] MEDS ORDERED: fentaNYL 100 MCG/2 ML INJECTION As Ordered ONE (14:26)
[2022-07-23] MEDS ORDERED: LIDOCAINE 2% 100MG/5ML SDV (FOR ANES.) As Ordered ONE (14:27)
[2022-07-23] MEDS ORDERED: propofoL 200 MG/20 ML VIAL As Ordered ONE ×2 (14:27→14:46)
[2022-07-23 15:07] VITALS: BP 118/71
== END 2022-07-23 15:27 | disposition home or self-care (01) ==
LOC: M OPP 12:28
PROVIDERS: ATTEND Internal Medicine Gastroenterology
DX: K31.811 Angiodysplasia of stomach and duodenum with bleeding (principal); D62 Acute posthemorrhagic anemia; I48.91 Unspecified atrial fibrillation; I71.40 Abdominal aortic aneurysm, without rupture, unspecified; Z87.891 Personal history of nicotine dependence; Z79.51 Long term (current) use of inhaled steroids; Z79.899 Other long term (current) drug therapy; Z79.02 Long term (current) use of antithrombotics/antiplatelets; Z88.0 Allergy status to penicillin; Z88.2 Allergy status to sulfonamides; Z88.8 Allergy status to other drugs, medicaments and biological substances
CPT/HCPCS: 43270; J3010

== ENCOUNTER → 2022-08-30 | Outpatient (CLI) | payer MEDICARE ==
[~2022-08-30] MED LIST changes: -NS 1,000 ML IV ONE
[2022-08-30 10:47] LABS: HEMATOCRIT 35.9 % (36.0-47.0); HEMOGLOBIN 11.5 g/dl (12.0-15.5); MEAN CORPUSCULAR HEMOGLOBIN 27.8 pg (27.0-33.0); MEAN CORPUSCULAR VOLUME 86.7 fl (80.0-96.0); PLATELET COUNT, AUTOMATED 280 10^3/uL (150-450); RED BLOOD COUNT 4.14 10^6/uL (4.00-5.40); WHITE BLOOD COUNT 6.8 10^3/uL (4.0-10.0)
[2022-08-30 11:10] LABS: ALBUMIN 3.5 G/DL (3.2-5.2); ALKALINE PHOSPHATASE 46 U/L (46-116); ALT/SGPT 17 U/L (7.0-40); AST/SGOT 19 U/L (<34); BILIRUBIN,TOTAL 0.8 MG/DL (0.3-1.2); BLOOD UREA NITROGEN 20 MG/DL (9-23); CALCIUM LEVEL 9.1 MG/DL (8.3-10.6); CARBON DIOXIDE LEVEL 25 MMOL/L (20-31); CHLORIDE LEVEL 103 MMOL/L (98-107); CHOLESTEROL LEVEL 132 MG/DL (<200); CHOLESTEROL RISK RATIO 3.32 (<5); CREATININE FOR GFR 0.91 MG/DL (0.55-1.30); GLOMERULAR FILTRATION RATE > 60.0 (>39); GLUCOSE, FASTING 139 MG/DL (74-106); HDL CHOLESTEROL 39.7 MG/DL (>40); LDL CHOLESTEROL 47.1 MG/DL (<100); NON-HDL-C 92 MG/DL; POTASSIUM SERUM 4.4 MMOL/L (3.5-5.1); SODIUM LEVEL 139 MMOL/L (136-145); TOTAL PROTEIN 6.9 G/DL (5.7-8.2); TRIGLYCERIDES LEVEL 226 MG/DL (<150)
[2022-08-30 11:31] LABS: ATYPICAL LYMPH 1 % (0-5); BASOPHILS 1 % (0-1); LYMPHOCYTES 26 % (16-44); MONOCYTES 10 % (0-5); NEUTROPHILS 61 % (28-66)
[2022-08-30 11:32] LABS: PLATELET ESTIMATE NORMAL (NORMAL)
[2022-08-30 11:33] LABS: ANISOCYTOSIS 1+
== END ==
LOC: M WUC 08:33
PROVIDERS: ATTEND Family Medicine
DX: E78.2 Mixed hyperlipidemia (principal); I48.0 Paroxysmal atrial fibrillation; I25.10 Atherosclerotic heart disease of native coronary artery without angina pectoris

== ENCOUNTER → 2022-10-24 | Outpatient (CLI) | payer MEDICARE ==
[2022-10-24 16:38] LABS: BASO # 0.1 10^3/uL (0.0-0.2); BASO % 0.7 % (0.0-1.0); EOS # 0.2 10^3/uL (0.0-0.5); EOS % 2.8 % (0.0-3.0); HEMATOCRIT 40.4 % (36.0-47.0); HEMOGLOBIN 12.8 g/dl (12.0-15.5); LYMPH % 22.7 % (24.0-44.0); MEAN CORPUSCULAR HEMOGLOBIN 29.4 pg (27.0-33.0); MEAN CORPUSCULAR HGB CONC 31.7 g/dl (32.0-36.5); MEAN CORPUSCULAR VOLUME 92.9 fl (80.0-96.0); MONO % 11.6 % (2.0-8.0); NEUTROPHILS # 5.4 10^3/uL (1.5-8.5); PLATELET COUNT, AUTOMATED 310 10^3/uL (150-450); RED BLOOD COUNT 4.35 10^6/uL (4.00-5.40); WHITE BLOOD COUNT 8.7 10^3/uL (4.0-10.0)
[2022-10-24 17:03] LABS: BLOOD UREA NITROGEN 17 MG/DL (9-23); CALCIUM LEVEL 9.6 MG/DL (8.3-10.6); CARBON DIOXIDE LEVEL 29 MMOL/L (20-31); CHLORIDE LEVEL 100 MMOL/L (98-107); GLOMERULAR FILTRATION RATE > 60.0 (>39); GLUCOSE, FASTING 118 MG/DL (74-106); POTASSIUM SERUM 4.6 MMOL/L (3.5-5.1); SODIUM LEVEL 137 MMOL/L (136-145)
[2022-10-24 17:35] LABS: HEMOGLOBIN A1c 6.3 % (4.0-6.0)
== END ==
LOC: M WUC 11:54
PROVIDERS: ATTEND Family Medicine
DX: D64.9 Anemia, unspecified (principal); E11.9 Type 2 diabetes mellitus without complications

== ENCOUNTER → 2023-06-04 | Outpatient (CLI) | payer MEDICARE ==
[~2023-06-04] MED LIST changes: +FLUT50SP17; -FLUTISP
[2023-06-04 17:21] LABS: BLOOD UREA NITROGEN 17 MG/DL (9-23); CALCIUM LEVEL 9.1 MG/DL (8.3-10.6); CARBON DIOXIDE LEVEL 30 MMOL/L (20-31); CHLORIDE LEVEL 100 MMOL/L (98-107); CREATININE FOR GFR 0.76 MG/DL (0.55-1.30); GLOMERULAR FILTRATION RATE > 60.0 (>39); GLUCOSE, FASTING 203 MG/DL (74-106); POTASSIUM SERUM 3.8 MMOL/L (3.5-5.1); SODIUM LEVEL 137 MMOL/L (136-145)
== END ==
LOC: M WUC 13:29
PROVIDERS: ATTEND Physician Assistant
DX: I11.9 Hypertensive heart disease without heart failure (principal)

== ENCOUNTER → 2023-06-24 | Outpatient (CLI) | payer MEDICARE ==
[2023-06-24 12:07] LABS: BASO # 0.1 10^3/uL (0.0-0.2); BASO % 0.6 % (0.0-1.0); EOS # 0.4 10^3/uL (0.0-0.5); EOS % 4.3 % (0.0-3.0); HEMATOCRIT 38.6 % (36.0-47.0); HEMOGLOBIN 12.7 g/dl (12.0-15.5); LYMPH # 1.7 10^3/uL (1.5-5.0); LYMPH % 19.8 % (24.0-44.0); MEAN CORPUSCULAR HEMOGLOBIN 29.2 pg (27.0-33.0); MEAN CORPUSCULAR HGB CONC 32.9 g/dl (32.0-36.5); MEAN CORPUSCULAR VOLUME 88.7 fl (80.0-96.0); MONO # 1.3 10^3/uL (0.0-0.8); MONO % 14.8 % (2.0-8.0); NEUTROPHILS # 5.3 10^3/uL (1.5-8.5); NEUTROPHILS % 60.3 % (36.0-66.0); PLATELET COUNT, AUTOMATED 340 10^3/uL (150-450); RED BLOOD COUNT 4.35 10^6/uL (4.00-5.40); WHITE BLOOD COUNT 8.8 10^3/uL (4.0-10.0)
[2023-06-24 12:18] LABS: HEMOGLOBIN A1c 6.4 % (4.0-6.0)
[2023-06-24 12:31] LABS: CREATININE, URINE 185.3 MG/DL
[2023-06-24 12:32] LABS: MAU/CREAT RATIO 22.1 MCG/MG (0.0-30.0)
[2023-06-24 12:35] LABS: ALBUMIN 3.8 G/DL (3.2-5.2); ALKALINE PHOSPHATASE 52 U/L (46-116); ALT/SGPT 21 U/L (7.0-40); AST/SGOT 19 U/L (<34); BLOOD UREA NITROGEN 20 MG/DL (9-23); CALCIUM LEVEL 9.3 MG/DL (8.3-10.6); CARBON DIOXIDE LEVEL 29 MMOL/L (20-31); CHLORIDE LEVEL 104 MMOL/L (98-107); CHOLESTEROL LEVEL 118 MG/DL (<200); CHOLESTEROL RISK RATIO 2.87 (<5); CREATININE FOR GFR 0.77 MG/DL (0.55-1.30); GLOMERULAR FILTRATION RATE > 60.0 (>39); GLUCOSE, FASTING 130 MG/DL (74-106); LDL CHOLESTEROL 45.2 MG/DL (<100); POTASSIUM SERUM 3.9 MMOL/L (3.5-5.1); SODIUM LEVEL 140 MMOL/L (136-145); TOTAL PROTEIN 7.1 G/DL (5.7-8.2); TRIGLYCERIDES LEVEL 159 MG/DL (<150)
== END ==
LOC: M WUC 09:37
PROVIDERS: ATTEND Family Medicine
DX: E11.9 Type 2 diabetes mellitus without complications (principal); D64.9 Anemia, unspecified

== ENCOUNTER → 2024-01-20 | Outpatient (CLI) | payer MEDICARE ==
[~2024-01-20] MED LIST changes: -FLUT50SP17; +FLUTISP; -MIRA1POW3 PO; +MIRA33506 PO; -ROSU10TA6 PO; +ROSU10TA61 PO
[2024-01-20 17:39] LABS: BASO % 0.5 % (0.0-1.0); EOS # 0.2 10^3/uL (0.0-0.5); EOS % 2.1 % (0.0-3.0); HEMATOCRIT 41.9 % (36.0-47.0); HEMOGLOBIN 13.7 g/dl (12.0-15.5); LYMPH # 1.9 10^3/uL (1.5-5.0); LYMPH % 22.2 % (24.0-44.0); MEAN CORPUSCULAR HEMOGLOBIN 29.7 pg (27.0-33.0); MEAN CORPUSCULAR HGB CONC 32.7 g/dl (32.0-36.5); MEAN CORPUSCULAR VOLUME 90.7 fl (80.0-96.0); MONO # 0.8 10^3/uL (0.0-0.8); MONO % 9.6 % (2.0-8.0); NEUTROPHILS # 5.5 10^3/uL (1.5-8.5); NEUTROPHILS % 65.2 % (36.0-66.0); PLATELET COUNT, AUTOMATED 264 10^3/uL (150-450); RED BLOOD COUNT 4.62 10^6/uL (4.00-5.40); WHITE BLOOD COUNT 8.5 10^3/uL (4.0-10.0)
[2024-01-20 17:40] LABS: ALBUMIN 3.5 G/DL (3.2-5.2); ALKALINE PHOSPHATASE 49 U/L (46-116); ALT/SGPT 22 U/L (7.0-40); AST/SGOT 18 U/L (<34); BLOOD UREA NITROGEN 14 MG/DL (9-23); CALCIUM LEVEL 8.9 MG/DL (8.3-10.6); CARBON DIOXIDE LEVEL 28 MMOL/L (20-31); CHLORIDE LEVEL 105 MMOL/L (98-107); CREATININE FOR GFR 0.83 MG/DL (0.55-1.30); GLOMERULAR FILTRATION RATE > 60.0 (>39); GLUCOSE, FASTING 119 MG/DL (74-106); POTASSIUM SERUM 4.4 MMOL/L (3.5-5.1); SODIUM LEVEL 140 MMOL/L (136-145); TOTAL PROTEIN 6.8 G/DL (5.7-8.2)
[2024-01-20 18:02] LABS: HEMOGLOBIN A1c 6.3 % (4.0-6.0)
== END ==
LOC: M WUC 11:03
PROVIDERS: ATTEND Nurse Practitioner Family
DX: E11.69 Type 2 diabetes mellitus with other specified complication (principal); D50.0 Iron deficiency anemia secondary to blood loss (chronic); I11.0 Hypertensive heart disease with heart failure

== ENCOUNTER → 2024-08-24 | Outpatient (CLI) | payer MEDICARE ==
[2024-08-24 18:46] LABS: BASO # 0.1 10^3/uL (0.0-0.2); BASO % 0.6 % (0.0-1.0); EOS # 0.2 10^3/uL (0.0-0.5); HEMATOCRIT 43.5 % (36.0-47.0); HEMOGLOBIN 14.4 g/dl (12.0-15.5); LYMPH # 2.1 10^3/uL (1.5-5.0); LYMPH % 23.5 % (24.0-44.0); MEAN CORPUSCULAR HEMOGLOBIN 29.4 pg (27.0-33.0); MEAN CORPUSCULAR HGB CONC 33.1 g/dl (32.0-36.5); MEAN CORPUSCULAR VOLUME 88.8 fl (80.0-96.0); MONO % 11.3 % (2.0-8.0); NEUTROPHILS # 5.6 10^3/uL (1.5-8.5); PLATELET COUNT, AUTOMATED 242 10^3/uL (150-450)
[2024-08-24 19:03] LABS: BLOOD UREA NITROGEN 15 MG/DL (9-23); CALCIUM LEVEL 9.7 MG/DL (8.3-10.6); CARBON DIOXIDE LEVEL 30 MMOL/L (20-31); CHLORIDE LEVEL 102 MMOL/L (98-107); CREATININE FOR GFR 0.69 MG/DL (0.55-1.30); GLOMERULAR FILTRATION RATE > 60.0 (>39); GLUCOSE, FASTING 138 MG/DL (74-106); POTASSIUM SERUM 3.8 MMOL/L (3.5-5.1); SODIUM LEVEL 140 MMOL/L (136-145)
[2024-08-24 19:06] LABS: CREATININE, URINE 215.5 MG/DL; MAU/CREAT RATIO 80.2 MCG/MG (0.0-30.0)
[2024-08-24 19:23] LABS: HEMOGLOBIN A1c 6.5 % (4.0-6.0)
== END ==
LOC: M WUC 11:55
PROVIDERS: ATTEND Nurse Practitioner Family
DX: E11.69 Type 2 diabetes mellitus with other specified complication (principal); D50.0 Iron deficiency anemia secondary to blood loss (chronic); I11.0 Hypertensive heart disease with heart failure

== ENCOUNTER → 2025-08-30 | Outpatient (CLI) | payer MEDICARE ==
[~2025-08-30] MED LIST changes: +LISI40TA10 PO; -LISI40TA4 PO; -PRAV20TA2 PO; +PRAV20TA78 PO; -ROSU10TA61 PO; +ROSU10TA90 PO
[2025-08-30 12:35] LABS: BASO # 0.0 10^3/uL (0.0-0.2); BASO % 0.5 % (0.0-1.0); EOS # 0.1 10^3/uL (0.0-0.5); EOS % 1.2 % (0.0-3.0); LYMPH # 1.8 10^3/uL (1.5-5.0); LYMPH % 22.7 % (24.0-44.0); MONO # 1.0 10^3/uL (0.0-0.8); MONO % 12.8 % (2.0-8.0); NEUTROPHILS # 4.9 10^3/uL (1.5-8.5); NEUTROPHILS % 62.5 % (36.0-66.0); PLATELET COUNT, AUTOMATED 283 10^3/uL (150-450)
[2025-08-30 13:04] LABS: CREATININE, URINE 169.6 MG/DL
[2025-08-30 13:05] LABS: ALT/SGPT 37.0 U/L (7.0-40); AST/SGOT 32.0 U/L (<34); CALCIUM LEVEL 9.6 MG/DL (8.3-10.6); CARBON DIOXIDE LEVEL 30.0 MMOL/L (20-31); CHLORIDE LEVEL 103.0 MMOL/L (98-107); CREATININE FOR GFR 0.75 MG/DL (0.55-1.30); GLOMERULAR FILTRATION RATE 80.9 (>39); IRON (FE) 58.0 UG/DL (50-170); MALB URINE SIEMENS 152.0 MG/L; MAU/CREAT RATIO 89.6 MCG/MG (0.0-30.0); PERCENT SATURATION 19.1 % (13.2-45.0); POTASSIUM SERUM 3.8 MMOL/L (3.5-5.1); SODIUM LEVEL 144.0 MMOL/L (136-145)
[2025-08-30 13:47] LABS: ESTIMATED AVERAGE GLUCOSE 123.0 MG/DL (60-110)
== END ==
LOC: M WUC 10:11
PROVIDERS: ATTEND Nurse Practitioner Family
DX: I11.0 Hypertensive heart disease with heart failure (principal); E11.69 Type 2 diabetes mellitus with other specified complication; E50.0 Vitamin A deficiency with conjunctival xerosis; I50.9 Heart failure, unspecified